=== PATIENT | female | born 1960 | race Caucasian/White ===

== ENCOUNTER 2022-03-28 11:46 | Inpatient (IN) ==
[2022-03-28] MEDS ORDERED: SODIUM CHLORIDE 0.9% 500 ML IV STA (12:56)
[2022-03-28] MEDS ORDERED: THIAMINE HCL 200 MG in SODIUM CHLORIDE 0.9% 50 ML IV STA (12:56)
[2022-03-28] MEDS ORDERED: MoRPHine SULFATE 4 MG/ML 1 ML CARP\\VIAL IV PRN (12:56)
[2022-03-28] MEDS ORDERED: ONDANSETRON INJ 2 MG/ML 2 ML VIAL IV STA (12:56)
--- NOTE | 2022-03-28 13:05 | Emergency Department Note ---
Impression & Plan Abdominal ascites, Abdominal pain, Thrombocytopenia, Abnormal LFTs ED Provider Note NAME: SHIREEN PETIT AGE: 61 SEX: F : 1960 ARRIVES VIA: Walk-In INFORMANT: Patient, ED PROVIDER(S): Feliz Nassar DO CHIEF COMPLAINT: Abdominal pain HPI: The patient is a 61-year-old female who is a history of chronic alcohol use who presented to the emergency department for an evaluation of left side abdominal pain. The patient states that she has had abdominal pain for approximately 6 weeks. She was seen at [facility] and diagnosed with a urinary tract infection. She states that she did take the antibiotic and the urinary symptoms improved but the patient continues to have left lower quadrant abdominal pain. She is had no fever. She does complain of some back pain. She does have a history of daily alcohol use. As far she knows she has no history of cirrhosis or ascites. She states her abdomen has become very distended. She denies having any black or bloody bowels. She denies having any chest pain but has had some shortness of breath especially with exertion. She is had no recent trauma or fever. She does not have a family doctor which is why she goes to [facility]. ROS: See above HPI for pertinent positives & negatives. A total of 10 systems reviewed and were otherwise negative. PAST MEDICAL HISTORY: See Below PAST SURGICAL HISTORY: See Below FAMILY HISTORY: See Below SOCIAL HISTORY: See Below HOME MEDICATIONS: See Below ALLERGIES: See Below VITALS: See Below PHYSICAL EXAMINATION: GENERAL: Patient is awake alert in no acute distress patient is resting comfortably and showing no signs of anxiety EYES: The conjunctivae are clear. The pupils are round and reactive. EARS, NOSE, MOUTH AND THROAT: The nose is without any evidence of any deformity. Mucous membranes are moist. Tongue is midline. NECK: The neck is nontender and supple. RESPIRATORY: Diminished breath sounds are noted at both bases. There were rales at both bases. CARDIOVASCULAR: Regular rate and rhythm noted there no murmurs rubs or gallops normal S1 normal S2. GASTROINTESTINAL: The abdomen is distended. There is a fluid wave suggestive of ascites. There is left-sided tenderness to palpation but no guarding or rigidity. MUSCULOSKELETAL/EXTREMITIES: There is no evidence of gross deformity full range of motion is noted in the hips and shoulders. SKIN: Pedal edema was noted bilaterally. Skin was warm and dry. NEUROLOGIC: Patient is awake alert and oriented x3 strength is symmetric moy lar reflexes are 2+ bilaterally MEDICAL DECISION MAKING: The patient is a 61-year-old female who presented to the emergency department for an evaluation of abdominal pain. The patient was seen at [facility] twice for these symptoms. The patient on my exam had significant ascites. She does admit to significant alcohol use. The patient was reevaluated multiple times. I treated the patient with IV pain medication. Ultimately the patient was found to have significant cirrhosis and ascites on CT. She has no family doctor. I am unsure if the patient would follow-up as an outpatient and I am uncomfortable with outpatient follow-up with this patient at this time. For this reason I discussed her case with the on-call unassigned gastroenterology group. They have agreed to evaluate the patient but would recommend that she stay in the hospital for further inpatient work-up as well as possible paracentesis. For this reason I discussed her case with the on-call [facility] hospitalist. The patient was agreeable to the plan. Triage Nursing notes reviewed. Prior medical records reviewed Vital Signs: reviewed and remarkable for elevated blood pressure. Differential diagnosis: Etiologies such as appendicitis, diverticulitis, obstruction, inflammatory bowel disease, renal colic, PUD, biliary pathology, pancreatitis, mesenteric ischemia, aortic pathology, infections, genitourinary, UTI, perforated viscus, as well as others were entertained. ER treatment provided: See below Diagnostics interpreted by me: ECG: none Cardiac Monitoring: An order was placed for continuous cardiac monitoring. The monitor shows a rate of 102 bpm with sinus tachycardia. Laboratory studies: As stated above and show below. Imaging studies: See below Consultation(s): I discussed this case with Bryson who is on for gastroenterology. I discussed this case with Dr. Lua who is on-call for the [facility] group. Past Med/Surg History Social History Smoking Status: Current every day smoker Tobacco Type: Cigarettes Preferred Language: Danish Feels Safe at Home: Yes Allergies Allergies Allergy/AdvReac Type Severity Reaction Status Date / Time No Known Allergies Allergy Unknown Verified 03/28/22 17:09 Home Meds Home Medications Medication Instructions Recorded Confirmed No Known Home Medications 09/14/18 03/28/22 Results & Data (ED) Vital Signs Vital Signs - 24 hr 03/28/22 11:59 03/28/22 12:54 03/28/22 14:00 Temperature 36.6 C Temperature Source Temporal Artery Scan Pulse Rate 106 H Pulse Rate [Finger] 107 H 69 Pulse Rhythm [Finger] Regular Respiratory Rate 18 16 16 Respiratory Effort / Characteristics Non-Labored Spontaneous Respiratory Depth Normal Respiratory Pattern Regular Blood Pressure 151/71 H Blood Pressure [Left Arm] 147/71 H 145/76 H Blood Pressure Mean 97 Blood Pressure Mean [Left Arm] 96 99 Blood Pressure Position Sitting Pulse Oximetry 96 91 90 Oxygen Delivery Method Room Air Sepsis Recent Fever Within 48 Hours No Sepsis New/Unexplained Change in Mental Status N/A Sepsis Action Taken by Nursing No Action Required 03/28/22 15:18 03/28/22 17:00 Temperature Temperature Source Pulse Rate Pulse Rate [Finger] 102 H 97 H Pulse Rhythm [Finger] Respiratory Rate 16 16 Respiratory Effort / Characteristics Respiratory Depth Respiratory Pattern Blood Pressure Blood Pressure [Left Arm] 143/71 H 123/74 Blood Pressure Mean Blood Pressure Mean [Left Arm] 95 90 Blood Pressure Position Pulse Oximetry 96 97 Oxygen Delivery Method Sepsis Recent Fever Within 48 Hours Sepsis New/Unexplained Change in Mental Status Sepsis Action Taken by [facility] Medications Current Medication List: was personally reviewed by me Laboratory Data Attestation: I reviewed the patient's lab results. Result diagrams: 03/28/22 12:38 03/28/22 12:38 Lab Results 03/28/22 03/28/22 03/28/22 Range/Units 12:38 12:38 12:38 WBC 6.66 (4.8-10.8) K/ul RBC 3.36 L (3.93-5.22) M/uL Hgb 12.3 (12.0-16.0) g/dl Hct 34.0 L (34.1-44.9) % MCV 101.2 H (80.0-100.0) fL MCH 36.6 H (25.0-34.0) pg MCHC 36.2 H (32.0-36.0) g/dL RDW Std Deviation 48.0 H (36.4-46.3) fL RDW Coeff of Justina 12.9 (11.5-14.5) % Plt Count 88 L (130-400) K/uL MPV 11.2 (9.4-12.3) fL Immature Gran % (Auto) 0.3 % Neut % (Auto) 65.0 % Lymph % (Auto) 25.5 % [place] % (Auto) 7.8 % Eos % (Auto) 0.9 % Baso % (Auto) 0.5 % Neut # (Auto) 4.33 (1.4-6.5) K/uL Lymph # (Auto) 1.70 (1.2-3.4) K/uL [place] # (Auto) 0.52 (0.24-0.82) K/uL Eos # (Auto) 0.06 (0-0.50) K/uL Baso # (Auto) 0.03 (0-0.2) K/uL Immature Gran # (Auto) 0.02 (0.00-0.02) K/uL Platelet Estimate Decreased L (Normal) Polychromasia 1+ Target Cells 1+ Tear Drop Cells 1+ PT 15.7 H (9.0-12.0) Seconds INR 1.5 H (0.9-1.1) APTT 33.0 H (21.0-31.0) Seconds PTT Ratio 1.2 Sodium 133 L (136-145) mmol/L Potassium 3.5 (3.5-5.1) mmol/L Chloride 100 (98-107) mmol/L Carbon Dioxide 27 (21-32) mmol/L Anion Gap 6 (3-11) BUN 4 L (6-23) mg/dl Creatinine 0.52 L (0.6-1.2) mg/dl Est Cr Clr Drug Dosing 98.8 ml/min Est GFR ( Amer) 119.5 ml/min Est GFR (Non-Af Amer) 103.1 ml/min BUN/Creatinine Ratio 7.7 L (10-20) Glucose 111 H (70-99(Fasting)) mg/dl Calcium 9.0 (8.5-10.1) mg/dl Total Bilirubin 4.1 H (0.2-1.0) mg/dl Direct Bilirubin (0-0.2) mg/dl AST 101 H (13-39) U/L ALT 39 (7-52) U/L Alkaline Phosphatase 101 (34-104) U/L Troponin I High Sens (0-14) pg/ml Total Protein 7.3 (6.0-8.3) gm/dl Albumin 2.9 L (3.4-5.0) gm/dl Globulin 4.4 H (2.5-4.0) gm/dl Albumin/Globulin Ratio 0.7 L (0.9-2) Lipase 43 (11-82) U/L Urine Color Urine Appearance (Clear) Urine pH (4.5-7.5) Ur Specific [place] (1.000-1.030) Urine Protein (Negative) Urine Glucose (UA) (Negative) Urine Ketones (Negative) Urine Blood (Negative) Urine Nitrite (Negative) Urine Bilirubin (Negative) Urine Urobilinogen (Negative) Ur Leukocyte Esterase (Negative) Urine RBC (0-4) /hpf Urine WBC (0-5) /hpf Ur Epithelial Cells (0-5) /lpf Urine Bacteria (Negative) Urine Mucus (None Prsent) SARS-CoV-2, RNA, NAAT (NEGATIVE) 03/28/22 03/28/22 03/28/22 Range/Units 12:38 12:45 13:20 WBC (4.8-10.8) K/ul RBC (3.93-5.22) M/uL Hgb (12.0-16.0) g/dl Hct (34.1-44.9) % MCV (80.0-100.0) fL MCH (25.0-34.0) pg MCHC (32.0-36.0) g/dL RDW Std Deviation (36.4-46.3) fL RDW Coeff of Justina (11.5-14.5) % Plt Count (130-400) K/uL MPV (9.4-12.3) fL Immature Gran % (Auto) % Neut % (Auto) % Lymph % (Auto) % [place] % (Auto) % Eos % (Auto) % Baso % (Auto) % Neut # (Auto) (1.4-6.5) K/uL Lymph # (Auto) (1.2-3.4) K/uL [place] # (Auto) (0.24-0.82) K/uL Eos # (Auto) (0-0.50) K/uL Baso # (Auto) (0-0.2) K/uL Immature Gran # (Auto) (0.00-0.02) K/uL Platelet Estimate (Normal) Polychromasia Target Cells Tear Drop Cells PT (9.0-12.0) Seconds INR (0.9-1.1) APTT (21.0-31.0) Seconds PTT Ratio Sodium (136-145) mmol/L Potassium (3.5-5.1) mmol/L Chloride (98-107) mmol/L Carbon Dioxide (21-32) mmol/L Anion Gap (3-11) BUN (6-23) mg/dl Creatinine (0.6-1.2) mg/dl Est Cr Clr Drug Dosing ml/min Est GFR ( Amer) ml/min Est GFR (Non-Af Amer) ml/min BUN/Creatinine Ratio (10-20) Glucose (70-99(Fasting)) mg/dl Calcium (8.5-10.1) mg/dl Total Bilirubin (0.2-1.0) mg/dl Direct Bilirubin 1.7 H (0-0.2) mg/dl AST (13-39) U/L ALT (7-52) U/L Alkaline Phosphatase (34-104) U/L Troponin I High Sens 5.9 (0-14) pg/ml Total Protein (6.0-8.3) gm/dl Albumin (3.4-5.0) gm/dl Globulin (2.5-4.0) gm/dl Albumin/Globulin Ratio (0.9-2) Lipase (11-82) U/L Urine Color [place] Urine Appearance Slightly Cloudy (Clear) Urine pH (4.5-7.5) Ur Specific Sum[place] 1.020 (1.000-1.030) Urine Protein (Negative) Urine Glucose (UA) (Negative) Urine Ketones (Negative) Urine Blood (Negative) Urine Nitrite (Negative) Urine Bilirubin (Negative) Urine Urobilinogen (Negative) Ur Leukocyte Esterase (Negative) Urine RBC 0-4 (0-4) /hpf Urine WBC 5-10 H (0-5) /hpf Ur Epithelial Cells >30 H (0-5) /lpf Urine Bacteria 1+ H (Negative) Urine Mucus Present A (None Prsent) SARS-CoV-2, RNA, NAAT NEGATIVE (NEGATIVE) Administered Medications Morphine Sulfate (Morphine Sulfate 4 Mg/Ml 1 Ml Carp\Vial) 4 mg IV Q15M PRN PRN Reason: Pain Stop: 04/11/22 12:55 Last Admin: 03/28/22 13:13 Dose: 4 mg Documented By: OUMOU Discontinued Medications Sodium Chloride (Nss) 500 mls @ 999 mls/hr IV .Q31M STA Stop: 03/28/22 13:26 Last Infusion: 03/28/22 15:17 Dose: 0 mls/hr Documented By: Admin: 03/28/22 13:14 Dose: 999 mls/hr Documented By: OUMOU Thiamine HCl 200 mg/ Sodium (Chloride) 52 mls @ 208 mls/hr IV NOW STA Stop: 03/28/22 12:57 Last Admin: 03/28/22 15:16 Dose: 208 mls/hr Documented By: OUMOU Ioversol (Optiray 350 100ml) 87 ml IV ONCE ONE Stop: 03/28/22 14:11 Last Admin: 03/28/22 14:06 Dose: 87 ml Documented By: RUTH Ondansetron HCl (Ondansetron Inj 2 Mg/Ml 2 Ml Vial) 4 mg IV NOW STA Stop: 03/28/22 12:57 Last Admin: 03/28/22 13:14 Dose: 4 mg Documented By: OUMOU Imaging Data Radiologist's Impression: Abdomen/Pelvis CT 03/28/22 12:56 CT abd pelvis IV con only CLINICAL HISTORY: abd pain TECHNIQUE: Helical axial images of the abdomen and pelvis were obtained and displayed. Automated dose lowering techniques and/or adjustment according to patient size were utilized for this exam. This exam was performed with intravenous contrast. CT DOSE: 414.45 mGy.cm COMPARISON: None available at the time of this dictation. FINDINGS: Lower chest: An ill-defined hypodensity in the right lower lung is noted measuring 14 mm. There are small bilateral pleural effusions. Liver: Nodular contour of the liver is seen compatible with cirrhosis. Gallbladder and biliary tree: The gallbladder and gallbladder wall is prominent without definite evidence of wall thickening. Common bile duct is enlarged measuring 9 mm. Pancreas: Unremarkable, no focal lesions. Spleen: Unremarkable. Adrenals: Unremarkable. Kidneys and ureters: Unremarkable. Bladder: Unremarkable. Reproductive organs: Unremarkable. Bowel: Diverticulosis is seen without evidence of diverticulitis. The appendix is not definitely seen however no secondary signs of appendicitis are noted. A hiatal hernia is seen. Lymph nodes Retroperitoneal: Unremarkable. Pelvic: Unremarkable. Mesenteric: Unremarkable. Peritoneum: Moderate to large ascites is noted. Vessels: Atherosclerotic calcifications are seen. Varices are noted about the esophagus. Recanalization of the umbilical arteries noted. The portal vein remains patent. Abdominal wall: A fat-containing fluid-filled umbilical hernia is noted. Bones: Degenerative changes in the visualized spine. IMPRESSION: 1. Cirrhosis and moderate to large ascites is seen in this patient with abdominal distention no evidence of bowel obstruction is seen. 2. Distention of the gallbladder and mild prominence of the gallbladder wall without lorri thickening may be secondary to ascites. If there is concern for acute cholecystitis, right upper quadrant ultrasound and/or nuclear medicine HIDA scan can be performed. 3. Trace bilateral pleural effusions. 4. Partial visualization of fat density lesion in the right lower lung which may represent a hamartoma. Correlation with prior imaging is recommended, if available. ACT 112: Negative or not required by law. Electronically signed by: Calvin Lomeli M.D. 03/28/2022 2:26 PM Chest X-Ray 03/28/22 12:56 XR chest 1V portable CLINICAL HISTORY: pain TECHNIQUE: Single frontal radiograph of the chest was obtained. Comparison: None available at the time of this dictation. FINDINGS: No lines and tubes are seen. The cardiomediastinal silhouette is normal. The lungs are clear. There is a small right pleural effusion. IMPRESSION: Small right pleural effusion. ACT 112: Negative or not required by law. Electronically signed by: Calvin Lomeli M.D. 03/28/2022 2:11 PM Discharge Plan Visit Data Chief Complaint: Abdominal Pain Stated Complaint: SOMACH PAIN, SWELLING ED Provider: Feliz Nassar Discharge Problem: Abdominal ascites, Abdominal pain, Thrombocytopenia, Abnormal LFTs Patient Disposition: Being Evaluated by Hospitalist Discharge Instructions Interventions: ED Discharge Assessment Last Done: 03/28/22 17:52 Forms Stand Alone Forms: [email or web address] Prescriptions Prescriptions: No Action No Known Home Medications Referrals Referrals: PCP,NO [Primary Care Provider] - : Abdominal ascites Qualifiers: Ascites type: due to alcoholic cirrhosis Qualified Code(s): K70.31 - Alcoholic cirrhosis of liver with ascites Abdominal pain Qualifiers: Abdominal location: left lower quadrant Qualified Code(s): R10.32 - Left lower quadrant pain
[2022-03-28 13:17] LABS: Albumin Globulin Ratio 0.7 (0.9-2); Albumin Level 2.9 gm/dl (3.4-5.0); BUN Creatinine Ratio 7.7 (10-20); Bilirubin,Total 4.1 mg/dl (0.2-1.0); Creatinine Clr Calc Pharmacy 98.8 ml/min; Est GFR (African American) 119.5 ml/min; Est GFR (Non-African American) 103.1 ml/min; Globulin 4.4 gm/dl (2.5-4.0); Potassium 3.5 mmol/L (3.5-5.1); Total Protein 7.3 gm/dl (6.0-8.3)
[2022-03-28 13:21] LABS: Appearance Urine Slightly Cloudy (Clear); Color Urine Orange
[2022-03-28 13:22] LABS: INR 1.5 (0.9-1.1); Partial Thromboplastin Ratio 1.2; Prothrombin Time 15.7 Seconds (9.0-12.0)
[2022-03-28 13:23] LABS: Epithelial Cell Urine >30 /lpf (0-5)
[2022-03-28 13:24] LABS: Bacteria Urine 1+ (Negative); RBC Urine 0-4 /hpf (0-4)
[2022-03-28 13:25] LABS: Mucus Urine Present (None Prsent)
[2022-03-28 13:47] LABS: Troponin I High Sensitivity 5.9 pg/ml (0-14)
[2022-03-28 13:52] LABS: Bilirubin Direct 1.7 mg/dl (0-0.2)
[2022-03-28 13:59] LABS: Basophils # (auto) 0.03 K/uL (0-0.2); Basophils % (auto) 0.5 %; Eosinophils # (auto) 0.06 K/uL (0-0.50); Eosinophils % (auto) 0.9 %; Hemoglobin 12.3 g/dl (12.0-16.0); Immature Granulocytes # (auto) 0.02 K/uL (0.00-0.02); Immature Granulocytes % (auto) 0.3 %; Lymphocytes % (auto) 25.5 %; Mean Corpuscular Hemoglobin 36.6 pg (25.0-34.0); Mean Corpuscular Hgb Conc 36.2 g/dL (32.0-36.0); Mean Corpuscular Volume 101.2 fL (80.0-100.0); Mean Platelet Volume 11.2 fL (9.4-12.3); Monocytes # (auto) 0.52 K/uL (0.24-0.82); Monocytes % (auto) 7.8 %; Neutrophils # (auto) 4.33 K/uL (1.4-6.5); Platelet Count 88 K/uL (130-400); Platelet Estimate Decreased (Normal); Polychromasia 1+; RDW Coefficient of Variation 12.9 % (11.5-14.5); Red Blood Count 3.36 M/uL (3.93-5.22); Target Cells 1+; Tear Drop Cells 1+; White Blood Count 6.66 K/ul (4.8-10.8)
[2022-03-28] MEDS ORDERED: OPTIRAY 350 100ml IV ONE (14:10)
--- NOTE | 2022-03-28 14:13 | XRay Report ---
XR chest 1V portable CLINICAL HISTORY: pain TECHNIQUE: Single frontal radiograph of the chest was obtained. Comparison: None available at the time of this dictation. FINDINGS: No lines and tubes are seen. The cardiomediastinal silhouette is normal. The lungs are clear. There i s a small right pleural effusion. IMPRESSION: Small right pleural effusion. ACT 112: Negative or not required by law. Electronically signed by: Calvin Lomeli M.D. 03/28/2022 2:11 PM
--- NOTE | 2022-03-28 14:28 | CT Scan Report ---
CT abd pelvis IV con only CLINICAL HISTORY: abd pain TECHNIQUE: Helical axial images of the abdomen and pelvis were obtained and displayed. Automated dose lowering techniques and/or adjustment according to patient size were utilized for this exam. This e xam was performed with intravenous contrast. CT DOSE: 414.45 mGy.cm COMPARISON: None available at the time of this dictation. FINDINGS: Lower chest: An ill-defined hypodensity in the right lower lung is noted measuring 14 mm. There are small bilateral pleural effusions. Liver: Nodular contour of the liver is seen compatible with cirrhosis. Gallbladder and biliary tree: The gallbladder and gallbladder wall is prominent without definite evid ence of wall thickening. Common bile duct is enlarged measuring 9 mm. Pancreas: Unremarkable, no focal lesions. Spleen: Unremarkable. Adrenals: Unremarkable. Kidneys and ureters: Unremarkable. Bladder: Unremarkable. Reproductive organs: Unremarkable. Bowel: Diverticulosis is seen without evidence of diverticulitis. The appendix is not definitely seen however no secondary signs of appendicitis are noted. A hiatal hernia is seen. Lymph nodes Retroperitoneal: Unremarkable. Pelvic: Unremarkable. Mesenteric: Unremarkable. Peritoneum: Moderate to large ascites is noted. Vessels: Atherosclerotic calcifications are seen. Varices are noted about the esophagus. Recanalizati on of the umbilical arteries noted. The portal vein remains patent. Abdominal wall: A fat-containing fluid-filled umbilical hernia is noted. Bones: Degenerative changes in the visualized spine. IMPRESSION: 1. Cirrhosis and moderate to large ascites is seen in this patient with abdominal distention no evid ence of bowel obstruction is seen. 2. Distention of the gallbladder and mild prominence of the gallbladder wall without lorri thickenin g may be secondary to ascites. If there is concern for acute cholecystitis, right upper quadrant ultr asound and/or nuclear medicine HIDA scan can be performed. 3. Trace bilateral pleural effusions. 4. Partial visualization of fat density lesion in the right lower lung which may represent a hamarto ma. Correlation with prior imaging is recommended, if available. ACT 112: Negative or not required by law. Electronically signed by: Calvin Lomeli M.D. 03/28/2022 2:26 PM
[2022-03-28] MEDS ORDERED: LORazepam 1 MG TAB PO PRN (16:50)
--- NOTE | 2022-03-28 17:23 | History & Physical Report ---
Date of Service March 28, 2022 Assessment & Plan (1) Cirrhosis, alcoholic: Plan: Patient admited with left sided abdominal pain. Given that patient has signs of cirrhosis, will consult GI. repeat blod work in AM. obtain paracenthesis, rule out spontaneous bacterial peritonitis Patient's Maddrey score is 25, and does not require prednisolone. Patient will be placed spirinolactone and lasix. Patient will need to be established with PCP (2) Abdominal ascites: Plan: fFrtom cirrhosis, getting paracenthesis in AM. Will likely require sprinolactone lasix at a ratio of 100/40 mg. will defer to after procedure (3) Abdominal pain: Plan: from problem 1, concern over SBP (4) Thrombocytopenia: Plan: from problem 1 (5) Abnormal LFTs: Plan: as above 1 (6) Nodule of right lung: Plan: right lower lung is noted measuring 14 mm, may need fluid drained, or biopsy lung nodule consulted as patient does not have PCP (7) Nicotine abuse: Plan: smokes tiny cigarettes, asks for minimal amount of nicotine DVT: defer as INR already 1.5 History of Present Illness Chief Complaint: abdominal pain Primary Care Provider: NO PCP 61 yo female who is a smoker, presents to the ER with a 6 week history of abdominal pain. This was accompanied by abdominal distention, fullness. Patient reports she has not seen a doctor since her last child was born about 26 years ago. Patient states she takes about 1.5 gr of acetaminophen 10 days a month. She reports she drink 4 glasses of wine 2 days a week. Patient reports no IV drug use. Patient reports no symptoms for alcohol withdrawal, like tremors, anxiety on days she does not drink, Patient lacks Past medical history, as she has not followed with a health care provider for close to 3 decades.. Allergies Allergy/AdvReac Type Severity Reaction Status Date / Time No Known Allergies Allergy Unknown Verified 03/28/22 17:09 Home Medications Medication Instructions Recorded Confirmed Type No Known Home Medications 09/14/18 03/28/22 History Past Med/Surg History Social History Smoking Status: Current every day smoker Tobacco Type: Cigarettes Second Hand Exposure: Yes; Do You Dip or Chew Tobacco: No; Tobacco Cessation Education Requested by Patient: No Hx Substance Use: No Preferred Language: Micronesian Communication Ability: Effective [employer] Buffer Required: No Beliefs That Will Affect Care: None Current Living Situation: Family Other Information That Helps Us Care for You: No Feels Safe at Home: Yes Safety Concerns: Feels Safe At This Time Assistive Devices: None Review of Systems Constitutional: + weakness; no fever and no body aches Eyes: no blind spots and no discharge Ear, Nose, Mouth, Throat: no ear pain and no tinnitus Respiratory: no cough Cardiovascular: no chest pain Gastrointestinal: + abdominal pain, + bloating and + early satiety Genitourinary: no dysuria Musculoskeletal: no back pain Integumentary: no acne Neurologic: no gait abnormality Psychiatric: no behavioral changes Endocrine: + fatigue Hematologic / Lymphatic: + easy bleeding Allergy / Immunological: no GI upset with certain foods Physical Exam Constitutional: well developed, + ill appearing (older than stated age), + frail appearing and cooperative; no acute distress Eyes: + scleral abnormality (icteric) and PERRL ENMT: external ear and nose normal, oropharynx normal Neck: trachea midline, no thyromegaly Respiratory: normal respiratory effort, lungs clear to auscultation Cardiovascular: Rate/Rhythm: regular rate and + tachycardic Gastrointestinal (Abdomen): ascitic wave noted, abd. distention, caput medusa noted soft, mildy tender to deep palpation. Musculoskeletal: no cyanosis or clubbing, extremities motor strength 5/5 Skin: palmar erythema bilaterally, Neurologic: PERRL, EOMI, accommodation nl, no face palsy, no dysarthria Psychiatric: A+Ox3, euthymic affect Lymphatic: no cervical or axillary lymphadenopathy Results & Data Results & Data ([facility]) Vital Signs (Past 12 Hours) Vital Signs Temp Pulse Pulse Resp BP BP Pulse Ox 03/28/22 15:18 102 H 16 143/71 H 96 03/28/22 14:00 69 16 145/76 H 90 03/28/22 12:54 107 H 16 147/71 H 91 03/28/22 11:59 36.6 C 106 H 18 151/71 H 96 O2 Del Method 03/28/22 15:18 03/28/22 14:00 03/28/22 12:54 03/28/22 11:59 Room Air PG Care Time/CCT Total # of Minutes Spent Total Time Spent with Patient: Total time spent is greater than 50% in coordination of care (as documented) at patient's floor/unit and/or counseling patient: Coding Level of Care Code 93600 Initial Inpt Care Lvl 3 Diagnoses Cirrhosis, alcoholic K70.30 Abdominal ascites K70.31 Ascites type: due to alcoholic cirrhosis Abdominal pain R10.32 Abdominal location: left lower quadrant Thrombocytopenia D69.6 Abnormal LFTs R79.89 Nodule of right lung R91.1 Nicotine abuse Z72.0 (1) Abdominal ascites Ascites type: due to alcoholic cirrhosis Qualified Code(s): K70.31 - Alcoholic cirrhosis of liver with ascites (2) Abdominal pain Abdominal location: left lower quadrant Qualified Code(s): R10.32 - Left lower quadrant pain
[2022-03-28] MEDS: FOLIC ACID 1 MG TAB PO SCH (21:02)
[2022-03-28] MEDS: THIAMINE HCL 100 MG TAB PO SCH (21:03)
[2022-03-28] MEDS: NICOTINE 7 MG/24 HR TDSY TD SCH (21:03)
[2022-03-29 07:25] LABS: Albumin Globulin Ratio 0.7 (0.9-2); Albumin Level 2.3 gm/dl (3.4-5.0); BUN Creatinine Ratio 9.4 (10-20); Bilirubin,Total 3.3 mg/dl (0.2-1.0); Calcium 8.2 mg/dl (8.5-10.1); Creatinine Clr Calc Pharmacy 96.3 ml/min; Est GFR (African American) 118.8 ml/min; Est GFR (Non-African American) 102.5 ml/min; Globulin 3.2 gm/dl (2.5-4.0); Potassium 3.5 mmol/L (3.5-5.1); Total Protein 5.5 gm/dl (6.0-8.3)
--- NOTE | 2022-03-29 07:50 | Hospitalist Progress Note ---
Date of Service March 29, 2022 Assessment & Plan Admission and Anticipated Discharge Date Admission Date: March 28, 2022 Results & Data Results & Data ([facility]) Vital Signs (Past 12 Hours) Vital Signs Temp Pulse Resp BP Pulse Ox O2 Del Method 03/29/22 03:49 37.1 C 92 H 18 110/58 L 92 Room Air 03/28/22 23:14 37.1 C 94 H 16 114/57 L 96 Room Air 03/28/22 20:55 36.9 C 99 H 18 133/68 96 Room Air
[2022-03-29] MEDS ORDERED: SPIRONOLACTONE 100 MG TAB PO SCH (09:00)
[2022-03-29] MEDS ORDERED: FUROSEMIDE 40 MG/4 ML VIAL IV SCH (09:00)
[2022-03-29] MEDS: FOLIC ACID 1 MG TAB PO SCH (09:17)
[2022-03-29] MEDS: THIAMINE HCL 100 MG TAB PO SCH (09:17)
[2022-03-29] MEDS: NICOTINE 7 MG/24 HR TDSY TD SCH (09:20)
--- NOTE | 2022-03-29 09:33 | Gastrointestinal Consultation ---
Date of Consultation March 29, 2022 Assessment & Plan (1) Cirrhosis, alcoholic: (2) Abdominal ascites: Plan -Proceed with diagnostic/therapeutic paracentesis with fluid studies as ordered by hospitalist. Pending volume of tap, may need Albumin. -Continue Aldactone 100 mg and Lasix 40 mg daily (adding K supplement) as ordered by hospitalist team. -Suspect etiology of cirrhosis is alcohol related, however viral hepatitis studies are pending and will plan to obtain autoimmune studies as outpatient. If no immunity to hep A/B, would plan to vaccinate as an outpatient. -Current MELD score is 17; Would advise continuing to monitor MELD labs. -HCC surveillance with AFP & routine liver imaging as outpatient. -EGD for variceal surveillance and colonoscopy as outpatient. -Limit sodium intake to less than 2,000 mg daily. -Avoid NSAIDs. Ok to use up to 2 gm Tylenol daily. -Avoid alcohol as it is a known liver toxin; would also plan to continue vitamin supplementation given alcohol use. -No current signs of hepatic encephalopathy; would avoid constipation. -The remainder of this cirrhosis work-up will be performed as an outpatient. Supervising Physician Co-Signing Physician Notes I personally evaluated the patient and agree with the findings as documented by Debbie Reeves, LARRY Exam: Constitutional: WD/WN, vitals as above General: EOM intact bilaterally Neck: normal visual inspection Respiratory: normal respiratory effort, lungs clear to auscultation Cardiovascular: RRR, no murmur, no edema Gastrointestinal: abdomennormal to inspection, nondistended, soft, nontender, no hepatosplenomegaly Musculoskeletal: no cyanosis, head normal to inspection Skin: no rashes, warm and dry Neurologic: moves all extremities, no asterixis Psychiatric: A and O x3, euthymic affect History of Present Illness Reason for Consultation: Cirrhosis Attending Physician: Santiago Huff DO History of Present Illness Patient is a 61 yo female without any known medical history as she has not sought medical care in 26 years. She presented to the ED at [facility] with 6 weeks of abdominal discomfort and pressure. She notes distention of her abdomen and a sensation of feeling full. In the ED, she was noted to have a CT with findings as follows: 1. Cirrhosis and moderate to large ascites is seen in this patient with abdominal distention no evidence of bowel obstruction is seen. 2. Distention of the gallbladder and mild prominence of the gallbladder wall without lorri thickening may be secondary to ascites. If there is concern for acute cholecystitis, right upper quadrant ultrasound and/or nuclear medicine HIDA scan can be performed. 3. Trace bilateral pleural effusions. 4. Partial visualization of fat density lesion in the right lower lung which may represent a hamartoma. Correlation with prior imaging is recommended, if available She acknowledges alcohol use. No history of IVDA. She notes no pertinent family history. Patient endorses some Tylenol use, however it is not over the advised amount. T bili is 3.3, D Bili 1.7. AST 66, ALT 27. Alk phos 78. The patient's MELD score is calculated to 17. She has evidence of thrombocytopenia on labs. Arianne zazueta was admitted to the hospital and the hospitalist initiated Aldactone 100 mg daily & Lasix 40 mg daily. A diagnostic/therapeutic paracentesis appears to have been ordered. She describes her abdominal pain as generalized. Allergies Allergy/AdvReac Type Severity Reaction Status Date / Time No Known Allergies Allergy Unknown Verified 03/28/22 17:09 Home Medications Medication Instructions Recorded Confirmed Type No Known Home Medications 09/14/18 03/28/22 History Patient History Social History Smoking Status: Current every day smoker Tobacco Type: Cigarettes Second Hand Exposure: Yes; Do You Dip or Chew Tobacco: No; Tobacco Cessation Education Requested by Patient: No Hx Substance Use: No Preferred Language: French Communication Ability: Effective Property Adjuster Required: No Beliefs That Will Affect Care: None marital status: Current Living Situation: Family How many Children do You have: 1 Other Information That Helps Us Care for You: No Feels Safe at Home: Yes Safety Concerns: Feels Safe At This Time Assistive Devices: None Review of Systems Constitutional: no fever and no chills Respiratory: no cough and no dyspnea Cardiovascular: no chest pain Gastrointestinal: + abdominal pain Psychiatric: no problem reported Physical Exam Constitutional: no acute distress Respiratory: normal respiratory effort Cardiovascular: Rate/Rhythm: regular rate Gastrointestinal (Abdomen): Inspection/Auscultation: + abdomen distended Percussion/Palpation: + ascites Musculoskeletal: Head/Neck/Chest: normocephalic Psychiatric: Orientation: alert and oriented x 3 Results & Data ([facility]) Vital Signs (Past 12 Hours) Vital Signs Temp Pulse Resp BP Pulse Ox O2 Del Method 03/29/22 08:00 Room Air 03/29/22 06:00 36.7 C 89 18 115/66 97 03/29/22 03:49 37.1 C 92 H 18 110/58 L 92 Room Air 03/28/22 23:14 37.1 C 94 H 16 114/57 L 96 Room Air PG Care Time/CCT Total # of Minutes Spent Total Time Spent with Patient: Total time spent is greater than 50% in coordination of care (as documented) at patient's floor/unit and/or counseling patient: Coding Level of Care Code 84646 Inpt Consult Level 4 Diagnoses Cirrhosis, alcoholic K70.30 Abdominal ascites K70.31 Ascites type: due to alcoholic cirrhosis (1) Abdominal ascites Ascites type: due to alcoholic cirrhosis Qualified Code(s): K70.31 - Alcoholic cirrhosis of liver with ascites
--- NOTE | 2022-03-29 12:44 | Ultrasound Report ---
PARACENTESIS UNDER ULTRASOUND GUIDANCE CLINICAL HISTORY: Abdominal ascites. COMPARISON STUDY: Abdominal CT dated 03/28/2022 PROCEDURE: The risks, benefits, and alternatives to the procedure were discussed with the patient who voiced understanding. Written informed consent was obtained. Following real-time ultrasound localiza tion of a suitable pocket of fluid in the right lower quadrant, the abdomen was prepped and draped in the usual sterile fashion. The skin and soft tissues were anesthetized with 1% lidocaine. The sheath ed paracentesis needle was inserted and approximately 3 liters of straw-colored ascitic fluid was rem eneida by vacuum suction. A sample sent for laboratory analysis. The procedure was well tolerated and w ithout immediate complication. The patient left the department in satisfactory condition. IMPRESSION: Successful ultrasound-guided paracentesis with removal of approximately 3 liters of ascit ic fluid. ACT 112: Negative or not required by law. Electronically signed by: Guillermo Vazquez M.D. 03/29/2022 12:43 PM
--- NOTE | 2022-03-29 13:40 | CT Scan Report ---
CT chest diagnostic wo con CLINICAL HISTORY: Lung Nodule TECHNIQUE: Multidetector row helical CT of the chest was performed. Coronal and sagittal reformations were obtained. Automated dose lowering techniques and/or adjustment according to patient size were u tilized for this exam. CT DOSE: 212.25 mGy.cm Comparison: Comparison is made to chest radiograph 03/28/[address] abdomen pelvis 03/28/2022 FINDINGS: Lungs and pleura: Diffuse centrilobular emphysema is seen most prominent in the upper lobes. There ar e trace bilateral pleural effusions with associated atelectasis. No suspicious pulmonary nodules are seen. In particular, the previously noted density seen in the CT abdomen pelvis likely correspond to the inferior wall of the right inferior pulmonary vein. Heart and pericardium: Heart size is normal. No pericardial effusion. Vessels: Mild atherosclerotic changes in the aorta and coronary arteries. Mediastinum and catarino: Unremarkable. Chest wall and lower neck: Unremarkable. Abdomen: Cirrhotic contour to the liver is seen. There is mild ascites. Bones: Degenerative changes in the thoracic spine. IMPRESSION: 1. No suspicious pulmonary nodule. Previously noted density in the right lower lung likely correspon ding to the inferior wall the right inferior pulmonary vein. 2. Emphysema is noted. 3. Trace bilateral pleural effusions with associated atelectasis. 4. Partial visualization of cirrhosis and mild ascites. ACT 112: Negative or not required by law. Electronically signed by: Calvin Lomeli M.D. 03/29/2022 1:39 PM
[2022-03-29 14:26] LABS: Appearance Peritoneal Fluid Clear; Basophils, Fluid 1 %; Color Peritoneal Fluid Yellow; Lymphocytes, Fluid 18 %; Mono,Macrophage,Mesothelial 64 %; Neutrophils, Fluid 17 %; RBC Peritoneal Fluid (A) < 2000 /uL; WBC Peritoneal Fluid (A) 300 /ul (0-300)
[2022-03-29 14:31] LABS: Albumin Peritoneal Fluid < 1.5 gm/dl; Amylase Peritoneal Fluid 20 U/L; Glucose Peritoneal Fluid 126 mg/dl; LDH Peritoneal Fluid 53 U/L; Lipase Peritoneal Fluid 25 U/L; Total Protein Peritoneal Fluid < 3.0 gm/dl
--- NOTE | 2022-03-29 17:28 | Discharge Summary ---
Date of Service March 29, 2022 Admission HPI Per Admitting Provider 61 yo female who is a smoker, presents to the ER with a 6 week history of abdominal pain. This was accompanied by abdominal distention, fullness. Patient reports she has not seen a doctor since her last child was born about 26 years ago. Patient states she takes about 1.5 gr of acetaminophen 10 days a month. She reports she drink 4 glasses of wine 2 days a week. Patient reports no IV drug use. Patient reports no symptoms for alcohol withdrawal, like tremors, anxiety on days she does not drink, Patient lacks Past medical history, as she has not followed with a health care provider for close to 3 decades.. Admission Exam Per Admitting Provider Constitutional: well developed, + ill appearing (older than stated age), + frail appearing and cooperative; no acute distress Eyes: + scleral abnormality (icteric) and PERR L ENMT: external ear and nose normal, oropharynx normal Neck: trachea midline, no thyromegaly Respiratory: normal respiratory effort, lungs clear to auscultation Cardiovascular: Rate/Rhythm: regular rate and + tachycardic Gastrointestinal (Abdomen): ascitic wave noted, abd. distention, caput medusa noted soft, mildy tender to deep palpation. Musculoskeletal: no cyanosis or clubbing, extremities motor strength 5/5 Skin: palmar erythema bilaterally, Neurologic: PERRL, EOMI, accommodation nl, no face palsy, no dysarthria Psychiatric: A+Ox3, euthymic affect Lymphatic: no cervical or axillary lymphadenopathy Principal Diagnosis Alcoholic Cirrhosis Discharge Exam Constitutional WD/WN, vitals as above Eyes PERRL, conjunctivae normal, anicteric sclerae ENMT external ear and nose normal, oropharynx normal Neck trachea midline, no thyromegaly Respiratory normal respiratory effort, lungs clear to auscultation Cardiovascular Rate/Rhythm: regular rate and regular rhythm Gastrointestinal (Abdomen) Inspection/Auscultation: abdomen normal to inspection, + abdomen distended (minimally distended) and normal bowel sounds Percussion/Palpation: abdomen soft; abdomen nontender Skin no rashes, warm and dry Discharge Data Allergies Allergy/AdvReac Type Severity Reaction Status Date / Time No Known Allergies Allergy Unknown Verified 03/28/22 17:09 Consultations 03/28/22 16:31 ED Decision to Admit Stat 03/29/22 06:54 Consult Gastroenterology Routine Ordered Studies 03/28/22 12:56 CT abd pelvis IV con only Stat 03/29/22 11:00 US paracentesis abd w/image Routine 03/29/22 11:47 CT chest diagnostic wo con Routine Hospital Course (1) Cirrhosis, alcoholic: -started lasix PO 40mg daily -started Spironolactone 100mg daily -patient to follow with GI -Patient to follow new PCP (1) Cirrhosis, alcoholic: Patient's Maddrey score is 25, and does not require prednisolone. CT A/P: Cirrhosis and moderate to large ascites is seen in this patient with abdominal distention no evidence of bowel obstruction is seen. Distention of the gallbladder and mild prominence of the gallbladder wall without lorri thickening may be secondary to ascites. If there is concern for acute cholecystitis, right upper quadrant ultrasound and/or nuclear medicine HIDA scan can be performed Trace bilateral pleural effusions. Consulted GI Paracentesis performed, transudative fluid cultures pending continue lasix and spironolactone hepatitis panels pending patient advised to limit sodium. Advised to avoid NSAIDS, tylenol, alcohol f/u in outpatient Patient's Maddrey score is 25, and does not require prednisolone. (2) Nicotine abuse: smokes tiny cigarettes, Consider cessation, nicotine patch (2) Nicotine abuse: (3) Abdominal ascites: (4) Abdominal pain: (5) Thrombocytopenia: Total Time Total Time Spent Total Time Spent (In Minutes): <30 Discharge Plan Discharge Items Patient Disposition: Home - Self-Care Reason For Visit: CIRRHOSIS/ ASCITIES Discharge Diagnosis: Cirrhosis Activity: Per Instructions section Non-emergency contact: Primary Care Provider Call non-emergency contact if: you have any medication questions, your symptoms worsen and your pain is unusual for you Follow-up/Referrals: Federico Alvares DO [Physician] - (WILL CALL YOU FRIDAY WITH APPT FOR GASTRO) Annia Mcgee DO [Resident] - 04/02/22 8:30 am (Please schedule f/u Debbie Gonzalez @ [address] [place] [address]) PCP,NO [Primary Care Provider] - Diet: Heart Healthy Addtl Attending Provider Instructions: You were admitted to the hospital for abdominal pain, caused by liver cirrhosis and swelling of your abdomen. Your liver damage is causing backflow of fluid, which accumulates in your abdomen and causing it to swell. You were treated by draining the fluid from your abdomen. You were also treated with medications (Lasix and Spironolactone) to help you pee out the extra fluid. Please continue these medications and follow up with your PCP within 1 week of discharge. In order to reduce the risk of further fluid overload and hospitalization, there are certain lifestyle changes we want you to incorporate into your day to day life. Stopping alcohol will prevent further damage to your liver. With time, yo ur liver may even recover and repair from its current damage. Decreasing your salt intake will also reduce the amount of fluid that accumulates in your body. This means limiting salt intake to a total of 2000mg daily. You can help track your salt intake by looking at food labels, and decreasing added salts to meals. Foods such as canned soup, processed meat (example: potts, jerky), takeout meals (fries, burgers, etc.), and snacks (potato chips, salted popcorn, etc) are high in salt and should largely be avoided. Additionally, medications such as tylenol and ibuprofen can cause further damage to your liver. If you need pain medication, you may use 1 tab of ibuprofen per day. You may also try other options such as ice, heat, massage, or medical options such as topical Voltaren gel (a pain relief gel) or a lidocaine patch (a numbing patch) A discharge summary will be sent to your primary care physician to ensure continuity of care. Please bring this discharge summary with you to your next office appointment so that your provider can review it at that time. Follow-up appointments: We will arrange a follow-up appointment with your PCP within the next week. It is very important that you follow up with them shortly after discharge from the hospital. We will arrange a follow-up appointment with your cloth printer. Keep all your follow-up appointments as already scheduled. If you cannot make an appointment, notify your provider. Medications: Your medication list has been reviewed and reconciled upon discharge to ensure accuracy and continuity of care. An updated list of all your medications is included with your hospital discharge paperwork. Please review this list closely, and make note of any changes. * We sent a new medication called Spironolactone to your pharmacy. Take Spironolactone 100mg one tablet daily * We sent a new medication called Lasix to your pharmacy. Take Lasix 40mg one tablet daily * We recommend you begin vitamin supplementation for vitamin B9, or Folate, as you were found to be low in the hospital Take your medications as instructed; do not skip a dose of your medicines. Make sure all of your doctors know every medicine you are taking (including [id number] medicines, vitamins, and supplements). Call your primary care provider before taking any new medicines (including kdlv-jed-dktvvgm medicines, vitamins, and supplements), because some of these may interact with your current medications, or may make your symptoms worse. Tell your primary care provider if you cannot afford your medications. CONTACT YOUR PRIMARY CARE PROVIDER if you experience any of the following: Increased abdominal swelling, abdominal pain, nausea Difficulty breathing Difficulty following your treatment plan, or difficulty taking medications CALL 911 OR GO TO THE EMERGENCY DEPARTMENT if you experience any of the following: Sudden, severe abdominal pain or nausea/vomiting Severe chest pain, or chest pain that radiates (moves) to your jaw or arm Sudden, severe shortness of breath or difficulty breathing Thank you for allowing us to participate in your care. Pending Studies at Discharge: No Stand-Alone Forms: My [facility], Smoking Cessation Medications and DC Order Prescriptions: New spironolactone 100 mg Tablet 100 mg PO QAM 30 Days Qty: 30 0RF furosemide 40 mg Tablet 40 mg PO QAM 30 Days Qty: 30 0RF folic acid 1 mg Tablet 1 mg PO QAM 30 Days Qty: 30 0RF No Action No Known Home Medications Discharge Orders: Discharge Order (Routine); Ordered 03/29/22 Ordered By: Annia Londono/Other Patient Handouts: Treating Cirrhosis, Cirrhosis of Liver Dc, ED Low-Salt Diet Admission Data Admit Date/Time: 03/28/22 16:39 Attending Provider: Santiago Huff Admit Provider: José Miguel Lua Primary Care Provider: PCP,NO Other Providers: José Miguel Lua ; Federico Alvares Other Interventions: Discharge Summary Assessment (RN) Last Done: 03/29/22 17:33 Supervising Physician Co-Signing Physician Notes I personally examined the patient and verified all morgan points of history and exam, discussed case, and agree with decision making with Dr Mcgee. Feeling better after paracentesis and would like to go home. Discussed new diagnosis of cirrhosis, discussed avoiding hepatotoxins in depth. Discussed diuretic use and risk/benefit as well as need for close follow-up and follow-up lab work, discussed sodium restriction and how that will aid in avoiding fluid retention. She expressed good understanding. present as well. Vitals noted, in general she is awake and alert pleasant no distress. HEENT normocephalic atraumatic mucous membranes moist. Breathing unlabored no accessory muscle use good effort. Skin shows no rashes no pallor or icterus. Neuro without focal deficits. New diagnosis cirrhosis with ascites s/p para, feeling better safe for home, av oid hepatotoxins, diurese//f/u BMP, low sodium, establish w PCP (will follow w dr mcgee)/f/u w GI Resident Activity Tracking Resident Involvement: Resident Care Provided Care Provided: Adult Hospital Medicine
--- NOTE | 2022-03-29 19:03 | Billing Data ---
Date of Service March 29, 2022 Coding Level of Care Code D/C DAY MANAGEMENT <30 MINS
[2022-03-30] MEDS ORDERED: FUROSEMIDE 40 MG TAB PO SCH (09:00)
[2022-03-30 14:36] LABS: HBSAG NON-REACTIVE (NON-REACTIVE); Hepatitis A Antibody IgM NON-REACTIVE (NON-REACTIVE); Hepatitis B Core Antibody IgM NON-REACTIVE (NON-REACTIVE)
[2022-03-31 20:46] LABS: EAG mmol/L 3.8 mmol/L
== END 2022-03-29 18:31 | disposition home or self-care (01) | DRG 434 ==
LOC: ED 11:46 → SUATTDRO 16:39 → 2E 16:39

== ENCOUNTER 2022-11-26 12:10 | Observation (INO) ==
[2022-11-26] MEDS ORDERED: MoRPHine SULFATE 2 MG/ML CARP IV STA ×2 (12:39→14:01)
[2022-11-26] MEDS ORDERED: ONDANSETRON INJ 2 MG/ML 2 ML VIAL IV STA (12:39)
--- NOTE | 2022-11-26 12:39 | Emergency Department Note ---
History of Present Illness General Chief complaint: Back Injury/Pain Stated complaint: BACK PAIN,CIRRHOSIS OF LIVER Time Seen by Provider: 11/26/22 12:28 History of Present Illness Maximum Pain Intensity: 10 This is a 62-year-old female that presents to the emergency department via private vehicle accompanied by with complaints "back pain, cirrhosis of liver". The patient notes that not this past Friday but the Friday before, approximately 9 to 10 days ago she was lifting some heavy boxes. Not long after she began with some right low back pain. It is worse with movement and mildly better with rest. She also is worried that she is having worsening liver issues noting she has some swelling to the lower extremities which is similar to what she experienced back in April when she was diagnosed with cirrhosis. The patient notes that in regard to low back pain it has worsened since onset and significantly worsened this past . Current pain 03/11. She denies any history of spine surgery. She has never had pain in her back like this before. Patient denies any lower extremity weakness, bowel or bladder incontinence, numbness or tingling in genital region. Patient denies any fevers, chills, nausea, vomiting, chest pain or shortness of breath. No history of blood clot. Patient notes that she has been very careful on her diet. She did note she took Tylenol around 8 PM last evening. She is concerned noting her history of cirrhosis. Home Medications Medication Instructions Recorded Confirmed Type Medical Marijuana Card 1 dose UD PRN Anxiety 08/22/22 11/26/22 History psyllium husk 3.4 gram/5.4 gram 1 tbsp PO BID 08/22/22 11/26/22 History oral powder (Metamucil) magnesium chloride 64 mg 64 mg PO DAILY #30 tabs 09/10/22 11/26/22 Rx (magnesium chloride) tablet,delayed release furosemide 40 mg tablet 20 mg PO QAM 30 days #15 tabs 10/10/22 11/26/22 Rx folic acid 1 mg tablet 1 mg PO QAM 30 days #30 tabs 10/16/22 11/26/22 Rx spironolactone 100 mg tablet 100 mg PO QAM 30 days #30 tabs 10/16/22 11/26/22 Rx acetaminophen 500 mg tablet 1,000 mg PO DIRECTED PRN Pain 11/26/22 11/26/22 History (Tylenol Extra Strength) fexofenadine 180 mg tablet 180 mg PO DAILY 11/26/22 11/26/22 History Allergies Allergy/AdvReac Type Severity Reaction Status Date / Time No Known Allergies Allergy Unknown Verified 11/26/22 14:54 Past Med/Surg History Medical History (Updated 11/26/22 @ 16:13 by Sterling Cunningham PA-C) Anxiety Cirrhosis of liver History of anesthesia reaction REMOTE HX HAD GAS ANESTHESIA WITH D&C/LUNG INFECTION WITHIN 24 HOURS AFTERWARDS ..TOLD TO AVOID GENERAL ANESTHESIA History of asthma CHILDHOOD History of COVID-19 HOME TEST + JUL 03 2022 - NO CURRENT S/ Low blood pressure CHRONIC ALL MY LIFE Vision decreased 11% OF VISION RIGHT EYE/HX ACCIDENT RELATED FAST MOTION MAKES ME SICK Surgical History History of D&C History of tooth extraction Family History Grandmother (Maternal) Breast cancer Mother Brain tumor due to accident Denies family history of Ovarian cancer Prostate cancer Diabetes Myocardial infarction Lung cancer Colorectal cancer Stroke Social History Smoking Status: Former smoker Tobacco Type: Cigarettes Age Started Using Tobacco: 13; packs per day: 1; Cigarettes Per Day: 3/4PPD ADVISED NPO; Second Hand Exposure: No; Do You Dip or Chew Tobacco: No; Hx Alcohol Use: Yes (HX >MODERATE/NONE SINCE DX OF CIRRHOSIS OF LIVER) Alcohol type: wine Hx Substance Use: No Preferred Language: Greek Communication Ability: Effective Visual Impairment: Limited Hearing Ability: Normal 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 Beliefs That Will Affect Care: None marital status: Current Living Situation: Spouse current occupational status: unemployed How many Children do You have: 1 Feels Safe at Home: Yes Childhood Exposure to Second-Hand Smoke: Yes Diet: low salt and regular caffeine: Yes Dental Care, Regularly: No Physical Activity Frequency: Does not Exercise Seatbelt Use: always Sunscreen Use: No Do you think of yourself as: straight/heterosexual Assistive Devices: Denture - Upper and Denture - Lower Review of Systems A total of 10 systems reviewed and were otherwise negative Physical Exam Vital Signs Vital Signs - 24 hr 11/26/22 12:13 11/26/22 13:20 11/26/22 13:05 Temperature 36.5 C Temperature Source Temporal Artery Scan Pulse Rate 84 86 86 Pulse Rate [Apical] Pulse Rate from SpO2 Sensor 87 Respiratory Rate 18 23 Respiratory Effort / Characteristics Non-Labored Respiratory Depth Normal Blood Pressure 95/52 L Blood Pressure [Left Arm] Blood Pressure Mean 66 Blood Pressure Mean [Left Arm] Pulse Oximetry 98 95 Oxygen Delivery Method Room Air Room Air Sepsis Recent Fever Within 48 Hours No Sepsis New/Unexplained Change in Mental Status No Sepsis Action Taken by Nursing No Action Required 11/26/22 13:30 11/26/22 13:49 11/26/22 13:49 Temperature Temperature Source Pulse Rate 81 87 Pulse Rate [Apical] Pulse Rate from SpO2 Sensor 81 87 Respiratory Rate 17 19 Respiratory Effort / Characteristics Respiratory Depth Blood Pressure 105/57 L Blood Pressure [Left Arm] Blood Pressure Mean 69 Blood Pressure Mean [Left Arm] Pulse Oximetry 98 98 Oxygen Delivery Method Room Air Room Air Sepsis Recent Fever Within 48 Hours Sepsis New/Unexplained Change in Mental Status Sepsis Action Taken by Nursing 11/26/22 14:00 11/26/22 14:30 11/26/22 14:31 Temperature Temperature Source Pulse Rate 84 85 82 Pulse Rate [Apical] Pulse Rate from SpO2 Sensor 87 85 85 Respiratory Rate 16 14 16 Respiratory Effort / Characteristics Respiratory Depth Blood Pressure Blood Pressure [Left Arm] Blood Pressure Mean Blood Pressure Mean [Left Arm] Pulse Oximetry 99 98 99 Oxygen Delivery Method Room Air Room Air Room Air Sepsis Recent Fever Within 48 Hours Sepsis New/Unexplained Change in Mental Status Sepsis Action Taken by Nursing 11/26/22 14:31 11/26/22 15:04 Temperature Temperature Source Pulse Rate Pulse Rate [Apical] 87 Pulse Rate from SpO2 Sensor Respiratory Rate 18 Respiratory Effort / Characteristics Non-Labored Respiratory Depth Normal Blood Pressure 106/57 L Blood Pressure [Left Arm] 109/58 L Blood Pressure Mean 73 Blood Pressure Mean [Left Arm] 75 Pulse Oximetry 99 Oxygen Delivery Method Room Air Sepsis Recent Fever Within 48 Hours Sepsis New/Unexplained Change in Mental Status Sepsis Action Taken by Nursing VITAL SIGNS - Vital signs and nursing notes were reviewed. Blood pressure borderline low, otherwise stable. GENERAL -62-year-old female appearing her stated age who is in no acute distress. Communicates well with provider and answers questions appropriately. SKIN - Without rashes. No meningeal or petechial rash. No herpetic lesions. HEAD - NC/AT. EYES - Sclera anicteric. EARS - No deformities of external structures noted on gross examination bilaterally. NOSE - Midline and without cyanosis. No epistaxis or purulent drainage noted. MOUTH/OROPHARYNX - Without perioral cyanosis. NECK - Neck with FROM. No nuchal rigidity. LUNGS - Chest wall symmetric without accessory muscle use, intercostals retractions, or central cyanosis. Normal vesicular breath sounds CTA B/L. No wheezes, rales, or rhonchi appreciated. CARDIAC - RRR with S1/S2. No murmur, rubs, or gallops appreciated. ABDOMEN - Abdominal contour normal without pulsations or visible masses. BS normoactive all four quadrants. No tenderness, palpable masses, hepatosplenomegaly, or ascites noted. MUSCULOSKELETALthere is no reproducible tenderness to palpation overlying the L-spine or back region. EXTREMITIES - No clubbing or peripheral cyanosis. +5/5 strength noted in UE/LE bilaterally. NEUROLOGIC - Cranial nerves II through XII grossly intact. PSYCH - A&Ox3 and cooperates fully with examiner. Pt is very pleasant and interacts well with examiner. Course Administered Medications Discontinued Medications Thiamine HCl 100 mg/ Folic (Acid 1 mg/ Sodium Chloride) 1,001.2 mls @ 500 mls/hr IV .Q2H1M STA; Protocol Stop: 11/26/22 15:19 Last Infusion: 11/26/22 15:45 Dose: 0 mls/hr Documented By: Admin: 11/26/22 13:45 Dose: 500 mls/hr Documented By: BROOK Morphine Sulfate (Morphine Sulfate 2 Mg/Ml Carp) 2 mg IV NOW STA Stop: 11/26/22 12:40 Last Admin: 11/26/22 12:49 Dose: 2 mg Documented By: QGV Morphine Sulfate (Morphine Sulfate 2 Mg/Ml Carp) 2 mg IV NOW STA Stop: 11/26/22 14:02 Last Admin: 11/26/22 15:08 Dose: 2 mg Documented By: SOPHIA Multivitamins/Minerals (Cerovite Adv Formula Tab) 1 tab PO ONE STA Stop: 11/26/22 13:20 Last Admin: 11/26/22 13:45 Dose: 1 tab Documented By: NMS Ondansetron HCl (Ondansetron Inj 2 Mg/Ml 2 Ml Vial) 4 mg IV NOW STA Stop: 11/26/22 12:40 Last Admin: 11/26/22 12:49 Dose: 4 mg Documented By: QGV Medical Decision Making Laboratory Data 11/26/22 12:23 11/26/22 12:18 Lab Results 11/26/22 11/26/22 11/26/22 Range/Units 12:18 12:18 12:23 WBC 6.46 (4.8-10.8) K/ul RBC 3.80 L (4.20-5.40) M/uL Hgb 13.1 (12.0-16.0) g/dl Hct 38.0 (37.0-47.0) % MCV 100.0 (80.0-100.0) fL MCH 34.5 H (25.0-34.0) pg MCHC 34.5 (32.0-36.0) g/dL RDW Std Deviation 50.6 H (36.4-46.3) fL RDW Coeff of Justina 13.8 (11.5-14.5) % Plt Count 121 L (130-400) K/uL MPV 9.8 (9.4-12.4) fL Immature Gran % (Auto) 0.3 % Neut % (Auto) 57.6 % Lymph % (Auto) 29.7 % Reynolds % (Auto) 9.9 % Eos % (Auto) 1.9 % Baso % (Auto) 0.6 % Neut # (Auto) 3.72 (1.40-6.50) K/uL Lymph # (Auto) 1.92 (1.2-3.4) K/uL Reynolds # (Auto) 0.64 H (0.11-0.59) K/uL Eos # (Auto) 0.12 (0-0.50) K/uL Baso # (Auto) 0.04 (0-0.2) K/uL Immature Gran # (Auto) 0.02 (0.01-0.20) K/uL PT 13.2 H (9.0-12.0) Seconds INR 1.2 H (0.9-1.1) APTT 28.8 (21.0-31.0) Seconds PTT Ratio 1.0 Sodium 133 L (136-145) mmol/L Potassium 4.8 (3.5-5.1) mmol/L Chloride 103 (98-107) mmol/L Carbon Dioxide 26 (21-32) mmol/L Anion Gap 4 (3-11) BUN 56 H (6-23) mg/dl Creatinine 1.97 H (0.6-1.2) mg/dl Est Cr Clr Drug Dosing Not Reportable Est GFR ( Amer) 30.8 ml/min Est GFR (Non-Af Amer) 26.6 ml/min BUN/Creatinine Ratio 28.4 H (10-20) Glucose 100 H (70-99(Fasting)) mg/dl Lactate (0.4-2.0) mmol/L Calcium 10.3 (8.6-10.3) mg/dl Magnesium 2.1 (1.7-2.4) mg/dl Total Bilirubin 1.1 H (0.2-1.0) mg/dl AST 48 H (13-39) U/L ALT 37 (7-52) U/L Alkaline Phosphatase 85 (34-104) U/L Total Protein 7.8 (6.0-8.3) gm/dl Albumin 3.6 (3.4-5.0) gm/dl Globulin 4.2 H (2.5-4.0) gm/dl Albumin/Globulin Ratio 0.9 (0.9-2) Lipase 226 H (11-82) U/L SARS-CoV-2, RNA, NAAT (NEGATIVE) 11/26/22 11/26/22 Range/Units 13:20 14:07 WBC (4.8-10.8) K/ul RBC (4.20-5.40) M/uL Hgb (12.0-16.0) g/dl Hct (37.0-47.0) % MCV (80.0-100.0) fL MCH (25.0-34.0) pg MCHC (32.0-36.0) g/dL RDW Std Deviation (36.4-46.3) fL RDW Coeff of Justina (11.5-14.5) % Plt Count (130-400) K/uL MPV (9.4-12.4) fL Immature Gran % (Auto) % Neut % (Auto) % Lymph % (Auto) % Reynolds % (Auto) % Eos % (Auto) % Baso % (Auto) % Neut # (Auto) (1.40-6.50) K/uL Lymph # (Auto) (1.2-3.4) K/uL Reynolds # (Auto) (0.11-0.59) K/uL Eos # (Auto) (0-0.50) K/uL Baso # (Auto) (0-0.2) K/uL Immature Gran # (Auto) (0.01-0.20) K/uL PT (9.0-12.0) Seconds INR (0.9-1.1) APTT (21.0-31.0) Seconds PTT Ratio Sodium (136-145) mmol/L Potassium (3.5-5.1) mmol/L Chloride (98-107) mmol/L Carbon Dioxide (21-32) mmol/L Anion Gap (3-11) BUN (6-23) mg/dl Creatinine (0.6-1.2) mg/dl Est Cr Clr Drug Dosing Est GFR ( Amer) ml/min Est GFR (Non-Af Amer) ml/min BUN/Creatinine Ratio (10-20) Glucose (70-99(Fasting)) mg/dl Lactate 1.3 (0.4-2.0) mmol/L Calcium (8.6-10.3) mg/dl Magnesium (1.7-2.4) mg/dl Total Bilirubin (0.2-1.0) mg/dl AST (13-39) U/L ALT (7-52) U/L Alkaline Phosphatase (34-104) U/L Total Protein (6.0-8.3) gm/dl Albumin (3.4-5.0) gm/dl Globulin (2.5-4.0) gm/dl Albumin/Globulin Ratio (0.9-2) Lipase (11-82) U/L SARS-CoV-2, RNA, NAAT NEGATIVE (NEGATIVE) Imaging Data Radiologist's Impression: Abdomen/Pelvis CT 11/26/22 13:04 CT SCAN OF THE ABDOMEN AND PELVIS WITHOUT IV CONTRAST; CT SCAN OF THE LUMBAR SPINE WITHOUT IV CONTRAST CLINICAL HISTORY: Low back pain. Cirrhosis. COMPARISON STUDY: Abdominal CT dated 03/28/2022. TECHNIQUE: CT scan of the abdomen and pelvis is performed from the lung bases to the proximal femora. Additionally, CT scan of the lumbar spine is performed from the lower thoracic spine to the sacrum. Images for both examinations are reviewed in the axial, sagittal, and coronal planes. IV contrast was not administered for this examination. Note that the examination is suboptimal with out IV contrast. A dose lowering technique was utilized adhering to the principles of ALARA. CT DOSE: 475.85 mGy.cm FINDINGS: Lung bases: The heart is normal in size and without pericardial effusion. Emphysematous change is suspected. There is bibasilar scarring/atelectasis. No airspace consolidation or pleural effusion is identified. There is a small hiatal hernia. Esophageal varices are noted. Liver: The unenhanced liver is cirrhotic in morphology and heterogeneous in attenuation. There is hypertrophy of the left lobe and nodularity of the hepatic surface contour. There is recanalization of the periumbilical vein. There is no intrahepatic biliary ductal dilatation. Gallbladder: The gallbladder is distended and contains calcified gallstones. Mild gallbladder wall thickening is nonspecific and likely related to adjacent hepatocellular disease. Spleen: Normal in size and attenuation. Pancreas: Calcifications in the pancreatic head/uncinate are nonspecific and could be seen with chronic pancreatitis. The pancreas appears edematous and there is infiltration around the pancreatic head and body no peripancreatic fluid collection is seen. Adrenal glands: Unremarkable. Kidneys: The unenhanced kidneys are normal in size and without hydronephrosis. There is a 3 mm nonobstructing right renal calculus. No left renal calculi are identified and there is no ureteral stone. There is no evidence of contour deforming renal mass lesion. Abdominal vasculature: The abdominal aorta is normal in course and caliber noting moderate to advanced atherosclerotic calcification. Bowel: There is mild to moderate sigmoid diverticulosis without CT evidence of acute diverticulitis. Moderate fecal retention is noted throughout the colon. There is no bowel obstruction. A duodenal diverticulum is incidentally noted. Th e appendix is well-visualized and normal. Peritoneum: There is no intraperitoneal free air or abdominal ascites. There is a fat-containing umbilical hernia. There is nonspecific infiltration along the mesentery. Lymphadenopathy: None. Pelvic viscera: The bladder, uterus, and adnexa are normal as visualized. Skeletal structures: The skeletal structures are osteopenic. See below for dedicated discussion of the lumbar spine. The bony pelvis and proximal femora appear intact. No lytic or blastic lesions are seen. LUMBAR SPINE: Vertebral body height and alignment are maintained throughout the lumbar spine. The transverse and spinous processes are intact. Tiny anterior and lateral marginal osteophytes are seen throughout. There is no spondylolysis. The disc spaces are preserved. There is no CT evidence of large disc herniation or central canal stenosis. There are left lateral disc bulges at L3-L4 and L4-L5. Lateral disc bulge is seen bilaterally at L5-S1. The paraspinous soft tissues are within normal limits. IMPRESSION: 1. The liver is cirrhotic in morphology and heterogeneous in attenuation. 2. Esophageal varices and recanalization of the periumbilical vein indicate portal hypertension. 3. No abdominal ascites is seen. 4. There is nonspecific infiltration around the pancreatic head and body. Correlate with clinical and laboratory findings for evidence of acute pancreatitis. 5. There is nonspecific infiltration identified throughout the central mesentery around the mesenteric vessels. The vessels cannot be assessed without IV contrast. If there is clinical concern for mesenteric vascular compromise a contrast enhanced CT should be obtained. 6. Cholelithiasis within a distended gallbladder. Mild gallbladder wall thickening is nonspecific and likely related to adjacent hepatocellular disease. Correlate with clinical and laboratory findings. If there is clinical concern for acute cholecystitis a right upper quadrant ultrasound would be appropriate. 7. Right-sided nephrolithiasis. 8. No acute bony abnormality is seen involving the lumbar spine. 9. Sigmoid diverticulosis without CT evidence of acute diverticulitis. 10. Additional findings as above. ACT 112: Negative or not required by law. Electronically signed by: Guillermo Vazquez M.D. 11/26/2022 1:[address] 11/26/22 13:04 CT SCAN OF THE ABDOMEN AND PELVIS WITHOUT IV CONTRAST; CT SCAN OF THE LUMBAR SPINE WITHOUT IV CONTRAST CLINICAL HISTORY: Low back pain. Cirrhosis. COMPARISON STUDY: Abdominal CT dated 03/28/2022. TECHNIQUE: CT scan of the abdomen and pelvis is performed from the lung bases to the proximal femora. Additionally, CT scan of the lumbar spine is performed from the lower thoracic spine to the sacrum. Images for both examinations are reviewed in the axial, sagittal, and coronal planes. IV contrast was not administered for this examination. Note that the examination is suboptimal without IV contrast. A dose lowering technique was utilized adhering to the principles of ALARA. CT DOSE: 475.85 mGy.cm FINDINGS: Lung bases: The heart is normal in size and without pericardial effusion. Emphysematous change is suspected. There is bibasilar scarring/atelectasis. No airspace consolidation or pleural effusion is identified. There is a small hiatal hernia. Esophageal varices are noted. Liver: The unenhanced liver is cirrhotic in morphology and heterogeneous in attenuation. There is hypertrophy of the left lobe and nodularity of the hepatic surface contour. There is recanalization of the periumbilical vein. There is no intrahepatic biliary ductal dilatation. Gallbladder: The gallbladder is distended and contains calcified gallstones. Mild gallbladder wall thickening is nonspecific and likely related to adjacent hepatocellular disease. Spleen: Normal in size and attenuation. Pancreas: Calcifications in the pancreatic head/uncinate are nonspecific and could be seen with chronic pancreatitis. The pancreas appears edematous and there is infiltration around the pancreatic head and body no peripancreatic fluid collection is seen. Adrenal glands: Unremarkable. Kidneys: The unenhanced kidneys are normal in size and without hydronephrosis. There is a 3 mm nonobstructing right renal calculus. No left renal calculi are identified and there is no ureteral stone. There is no evidence of contour deforming renal mass lesion. Abdominal vasculature: The abdominal aorta is normal in course and caliber noting moderate to advanced atherosclerotic calcification. Bowel: There is mild to moderate sigmoid diverticulosis without CT evidence of acute diverticulitis. Moderate fecal retention is noted throughout the colon. There is no bowel obstruction. A duodenal diverticulum is incidentally noted. The appendix is well-visualized and normal. Peritoneum: There is no intraperitoneal free air or abdominal ascites. There is a fat-containing umbilical hernia. There is nonspecific infiltration along the mesentery. Lymphadenopathy: None. Pelvic viscera: The bladder, uterus, and adnexa are normal as visualized. Skeletal structures: The skeletal structures are osteopenic. See below for dedicated discussion of the lumbar spine. The bony pelvis and proximal femora appear intact. No lytic or blastic lesions are seen. LUMBAR SPINE: Vertebral body height and alignment are maintained throughout the lumbar spine. The transverse and spinous processes are intact. Tiny anterior and lateral marginal osteophytes are seen throughout. There is no spondylolysis. The disc spaces are preserved. There is no CT evidence of large disc herniation or central canal stenosis. There are left lateral disc bulges at L3-L4 and L4-L5. Lateral disc bulge is seen bilaterally at L5-S1. The paraspinous soft tissues are within normal limits. IMPRESSION: 1. The liver is cirrhotic in morphology and heterogeneous in attenuation. 2. Esophageal varices and recanalization of the periumbilical vein indicate portal hypertension. 3. No abdominal ascites is seen. 4. There is nonspecific infiltration around the pancreatic head and body. Correlate with clinical and laboratory findings for evidence of acute pancreatitis. 5. There is nonspecific infiltration identified throughout the central mesentery around the mesenteric vessels. The vessels cannot be assessed without IV contrast. If there is clinical concern for mesenteric vascular compromise a contrast enhanced CT should be obtained. 6. Cholelithiasis within a distended gallbladder. Mild gallbladder wall thickening is nonspecific and likely related to adjacent hepatocellular disease. Correlate with clinical and laboratory findings. If there is clinical concern for acute cholecystitis a right upper quadrant ultrasound would be appropriate. 7. Right-sided nephrolithiasis. 8. No acute bony abnormality is seen involving the lumbar spine. 9. Sigmoid diverticulosis without CT evidence of acute diverticulitis. 10. Additional findings as above. ACT 112: Negative or not required by law. Electronically signed by: Guillermo Vazquez M.D. 11/26/2022 1:40 PM [facility] Narrative Patient was seen and evaluated as above in room B10. Review was performed of triage nursing notes and vital signs. I did review pertinent previous visits and patient history. After obtaining a thorough history and physical examination the above work up was performed. Patient presents to us today for evaluation of right low back pain that has been worsening over the past 9 to 10 days but acutely worsened over the past few days. Patient notes this happened after she lifted some heavy boxes. No evidence of cauda equina syndrome or infectious etiology. Patient believes that there is some edema to the lower extremities but on examination no significant edema is present. No fevers. Options of care were discussed with the patient. IV access was established. Labs were drawn. Patient notes that she did well with pain medication on her previous visit and that was found to be morphine for pain and Zofran for nausea. I did find it reasonable provide small doses of these medications. CT scan was obtained of the abdomen/pelvis as well as recon images of the L-spine. Labs reveal no leukocytosis or concerning anemia. Mild thrombocytopenia 121 which is similar to previous and actually improved. Mild elevation in INR at 1.2. Mild hyponatremia 133. There is RAVI with creatinine of 1.97 and BUN of 56 significantly elevated compared to her baseline. T. bili 1.1 with AST at 48. Bilirubin is actually improved compared to previous. There is lipase elevation at 226 which may be potentially the source of her back pain but she is nontender in the abdomen. There is no abdominal pain. I did have to convert the CT scan of the abdomen/pelvis as well as L-spine recon without contrast noting the RAVI. Results are as above. There is cirrhotic liver noted. Esophageal varices. No abdominal ascites. There is nonspecific infiltration around the pancreatic head and body and with the patient having back pain this could be secondary to pancreatitis noting the elevated lipase as well which is new compared to previous. There is comment of nonspecific infiltration through the central mesentery and mesenteric vessels. Unfortunately with the patient's RAVI there is concern about adding contrast and therefore lactate was added which was found to be within normal range. Low suspicion for any type of ischemic process within the abdomen. There are stones in the gallbladder noted. Right-sided kidney stone which is not really felt to be causing her pain presently. At this time with the patient having an RAVI, lipase elevation in the setting of possible pancreatitis by CT I do believe that further evaluation and management in the inpatient setting is warranted. Patient amenable to plan of care. IV fluids with multivitamins and thiamine provided here. Case discussed with the hospitalist service. Please refer to further documentation regarding her stay. Case was discussed with the attending physician. GCS: 15 In the evaluation and treatment of this patient the following differential diagnoses were entertained: Intestinal perforation, renal calculi, UTI, py elonephritis, cauda equina syndrome, lumbar sprain, strain, lumbar fracture, pancreatitis, epidural abscess, among others Impression & Plan Right low back pain, RAVI (acute kidney injury), Thrombocytopenia, Pancreatitis Discharge Plan Visit Data Chief Complaint: Back Injury/Pain Stated Complaint: BACK PAIN,CIRRHOSIS OF LIVER ED Provider: Crispin Valdez ED Midlevel Provider: Sterling Cunningham Discharge Problem: Right low back pain, RAVI (acute kidney injury), Thrombocytopenia, Pancreatitis Patient Disposition: Admitted As Inpatient Condition: Good Forms Stand Alone Forms: My [facility] [employer] Prescriptions Prescriptions: No Action magnesium chloride 64 mg tablet,delayed release (DR/EC) 64 mg PO DAILY Qty: 30 3RF furosemide 40 mg tablet 20 mg PO QAM 30 Days Qty: 15 5RF folic acid 1 mg tablet 1 mg PO QAM 30 Days Qty: 30 5RF spironolactone 100 mg tablet 100 mg PO QAM 30 Days Qty: 30 5RF Metamucil 3.4 gram/5.4 gram Powder 1 tbsp PO BID Rx Instructions: mix into at least 8 oz of water or juice before administering Medical Marijuana Card 1 dose UD PRN (Reason: Anxiety) fexofenadine [Venessa] 180 mg Tablet 180 mg PO DAILY acetaminophen [Tylenol Extra Strength] 500 mg Tablet 1,000 mg PO DIRECTED PRN (Reason: Pain) Referrals Referrals: Jethro Mills DO [Primary Care Provider] -
[2022-11-26 12:43] LABS: Basophils # (auto) 0.04 K/uL (0-0.2); Basophils % (auto) 0.6 %; Eosinophils # (auto) 0.12 K/uL (0-0.50); Eosinophils % (auto) 1.9 %; Hemoglobin 13.1 g/dl (12.0-16.0); Immature Granulocytes # (auto) 0.02 K/uL (0.01-0.20); Immature Granulocytes % (auto) 0.3 %; Lymphocytes # (auto) 1.92 K/uL (1.2-3.4); Lymphocytes % (auto) 29.7 %; Mean Corpuscular Hemoglobin 34.5 pg (25.0-34.0); Mean Corpuscular Hgb Conc 34.5 g/dL (32.0-36.0); Mean Platelet Volume 9.8 fL (9.4-12.4); Monocytes # (auto) 0.64 K/uL (0.11-0.59); Monocytes % (auto) 9.9 %; Neutrophils # (auto) 3.72 K/uL (1.40-6.50); Neutrophils % (auto) 57.6 %; Platelet Count 121 K/uL (130-400); RDW Coefficient of Variation 13.8 % (11.5-14.5); RDW Standard Deviation 50.6 fL (36.4-46.3); White Blood Count 6.46 K/ul (4.8-10.8)
[2022-11-26 13:01] LABS: Alanine Aminotransferase 37 U/L (7-52); Albumin Globulin Ratio 0.9 (0.9-2); Albumin Level 3.6 gm/dl (3.4-5.0); Alkaline Phosphatase 85 U/L (34-104); Anion Gap 4 (3-11); Aspartate Aminotransferase 48 U/L (13-39); BUN Creatinine Ratio 28.4 (10-20); Bilirubin,Total 1.1 mg/dl (0.2-1.0); Blood Urea Nitrogen 56 mg/dl (6-23); Calcium 10.3 mg/dl (8.6-10.3); Carbon Dioxide 26 mmol/L (21-32); Chloride 103 mmol/L (98-107); Est GFR (African American) 30.8 ml/min; Est GFR (Non-African American) 26.6 ml/min; Globulin 4.2 gm/dl (2.5-4.0); Glucose 100 mg/dl (70-99(Fasting)); Lipase 226 U/L (11-82); Magnesium 2.1 mg/dl (1.7-2.4); Potassium 4.8 mmol/L (3.5-5.1); Sodium 133 mmol/L (136-145); Total Protein 7.8 gm/dl (6.0-8.3)
[2022-11-26 13:19] LABS: INR 1.2 (0.9-1.1); Partial Thromboplastin Time 28.8 Seconds (21.0-31.0); Prothrombin Time 13.2 Seconds (9.0-12.0)
[2022-11-26] MEDS ORDERED: CEROVITE ADV FORMULA TAB PO STA (13:19)
[2022-11-26] MEDS ORDERED: THIAMINE HCL 100 MG, FOLIC ACID 1 MG in SODIUM CHLORIDE 0.9% 1000ML 1,000 ML IV STA (13:19)
--- NOTE | 2022-11-26 13:42 | CT Scan Report ---
CT SCAN OF THE ABDOMEN AND PELVIS WITHOUT IV CONTRAST; CT SCAN OF THE LUMBAR SPINE WITHOUT IV CONTRAS T CLINICAL HISTORY: Low back pain. Cirrhosis. COMPARISON STUDY: Abdominal CT dated 03/28/2022. TECHNIQUE: CT scan of the abdomen and pelvis is performed from the lung bases to the proximal femora. Additionally, CT scan of the lumbar spine is performed from the lower thoracic spine to the sacrum. Images for both examinations are reviewed in the axial, sagittal, and coronal planes. IV contrast was not administered for this examination. Note that the examination is suboptimal without IV contrast. A dose lowering technique was utilized adhering to the principles of ALARA. CT DOSE: 475.85 mGy.cm FINDINGS: Lung bases: The heart is normal in size and without pericardial effusion. Emphysematous change is liz pected. There is bibasilar scarring/atelectasis. No airspace consolidation or pleural effusion is leila ntified. There is a small hiatal hernia. Esophageal varices are noted. Liver: The unenhanced liver is cirrhotic in morphology and heterogeneous in attenuation. There is hyp ertrophy of the left lobe and nodularity of the hepatic surface contour. There is recanalization of t he periumbilical vein. There is no intrahepatic biliary ductal dilatation. Gallbladder: The gallbladder is distended and contains calcified gallstones. Mild gallbladder wall th ickening is nonspecific and likely related to adjacent hepatocellular disease. Spleen: Normal in size and attenuation. Pancreas: Calcifications in the pancreatic head/uncinate are nonspecific and could be seen with chron ic pancreatitis. The pancreas appears edematous and there is infiltration around the pancreatic head and body no peripancreatic fluid collection is seen. Adrenal glands: Unremarkable. Kidneys: The unenhanced kidneys are normal in size and without hydronephrosis. There is a 3 mm nonobs tructing right renal calculus. No left renal calculi are identified and there is no ureteral stone. T here is no evidence of contour deforming renal mass lesion. Abdominal vasculature: The abdominal aorta is normal in course and caliber noting moderate to advance d atherosclerotic calcification. Bowel: There is mild to moderate sigmoid diverticulosis without CT evidence of acute diverticulitis. Moderate fecal retention is noted throughout the colon. There is no bowel obstruction. A duodenal div erticulum is incidentally noted. The appendix is well-visualized and normal. Peritoneum: There is no intraperitoneal free air or abdominal ascites. There is a fat-containing umbi lical hernia. There is nonspecific infiltration along the mesentery. Lymphadenopathy: None. Pelvic viscera: The bladder, uterus, and adnexa are normal as visualized. Skeletal structures: The skeletal structures are osteopenic. See below for dedicated discussion of th e lumbar spine. The bony pelvis and proximal femora appear intact. No lytic or blastic lesions are se en. LUMBAR SPINE: Vertebral body height and alignment are maintained throughout the lumbar spine. The tra nsverse and spinous processes are intact. Tiny anterior and lateral marginal osteophytes are seen thr oughout. There is no spondylolysis. The disc spaces are preserved. There is no CT evidence of large d isc herniation or central canal stenosis. There are left lateral disc bulges at L3-L4 and L4-L5. Late ral disc bulge is seen bilaterally at L5-S1. The paraspinous soft tissues are within normal limits. IMPRESSION: 1. The liver is cirrhotic in morphology and heterogeneous in attenuation. 2. Esophageal varices and recanalization of the periumbilical vein indicate portal hypertension. 3. No abdominal ascites is seen. 4. There is nonspecific infiltration around the pancreatic head and body. Correlate with clinical and laboratory findings for evidence of acute pancreatitis. 5. There is nonspecific infiltration identified throughout the central mesentery around the mesenteri c vessels. The vessels cannot be assessed without IV contrast. If there is clinical concern for mesen teric vascular compromise a contrast enhanced CT should be obtained. 6. Cholelithiasis within a distended gallbladder. Mild gallbladder wall thickening is nonspecific and likely related to adjacent hepatocellular disease. Correlate with clinical and laboratory findings. If there is clinical concern for acute cholecystitis a right upper quadrant ultrasound would be appro priate. 7. Right-sided nephrolithiasis. 8. No acute bony abnormality is seen involving the lumbar spine. 9. Sigmoid diverticulosis without CT evidence of acute diverticulitis. 10. Additional findings as above. ACT 112: Negative or not required by law. Electronically signed by: Guillermo Vazquez M.D. 11/26/2022 1:40 PM
--- NOTE | 2022-11-26 14:24 | History & Physical Report ---
Date of Service November 26, 2022 Assessment & Plan (1) Right low back pain: Plan: 62-year-old female past medical history of alcoholic cirrhosis, thrombocytopenia who presents with right side/lower back pain since lifting 20-25lbs boxes 10 days ago with exacerbation to severe intensity since 11/22/22. Considered musculoskeletal versus referred pain open (pancreatitis versus cholelithiasis. also considered liver inflammation). Less likely from the 3 mm nonobstructing right nephrolithiasis. No leukocytosis. Lower suspicion for shingles. Plan will be pain control and further expiration of the gallbladder etiology via ultrasound. Exam (strongly affected by movement) is most suggestive of MSK origin. PT/OT evals. While lipase typically isn't trended, will repeat lipasefor diagnostic purposes. If severely climbing lipase, could consider MRCP. US w/ cholelithi asis; passed/passing gallstone also considered. (2) Pancreatitis: Plan: Per CT abd, nonspecific infiltration around the pancreatic head and body. Lipase 226. BISAP 2 points. Gentle fluids in setting of cirrhosis. Unclear/less likely that this is main cause of the right low back pain. (3) Cirrhosis, alcoholic: Plan: Chronic. Alcohol use disorder in remission Holding home furosemide and spironolactone currently in setting of RAVI MELD-Na 18 points. 6% estimated 3 month mortality (4) RAVI (acute kidney injury): Plan: Baseline 1-1.2s. 1.97 this admission. In setting of cirrhosis, will consult n toby. (5) Nicotine abuse: Plan: 1ppd, will order nicotine patch 21mg (6) Thrombocytopenia: Plan: Chronic, at baseline. Level is acceptable for DVT prophylaxis (7) Anxiety: Plan: Stable, not on medication (8) Medical marijuana use: Plan: Reports occasional use as outpatient. Not ordered at this time. Plan F/E/N: low Na. NSS 80/hr x2 bags dvt ppx: sq heparin 5000u q12. SCDs. code: full dispo: med tele History of Present Illness Chief Complaint: Intractable low back pain Primary Care Provider: Jethro Mills DO 62-year-old female past medical history of alcoholic cirrhosis, thrombocytopenia who presents with right side/lower back pain since lifting 20-25lbs boxes 10 days ago with exacerbation to severe intensity since 11/22/22. She was seen by PCP today who sent her to the ED. She has not had appendectomy or cholecystectomy. She had a normal HIDA scan 09/2022 for an equivocal gallbladder on CT abd in 08/2022. Denies having family history of gallbladder disease. He states she took her home medications this morning. ED course: Morphine 2 mg IV x2, zofran. Allergies Allergy/AdvReac Type Severity Reaction Status Date / Time No Known Allergies Allergy Unknown Verified 11/26/22 14:54 Home Medications Medication Instructions Recorded Confirmed Type Medical Marijuana Card 1 dose UD PRN Anxiety 08/22/22 11/26/22 History psyllium husk 3.4 gram/5.4 gram 1 tbsp PO BID 08/22/22 11/26/22 History oral powder (Metamucil) magnesium chloride 64 mg 64 mg PO DAILY #30 tabs 09/10/22 11/26/22 Rx (magnesium chloride) tablet,delayed release furosemide 40 mg tablet 20 mg PO QAM 30 days #15 tabs 10/10/22 11/26/22 Rx folic acid 1 mg tablet 1 mg PO QAM 30 days #30 tabs 10/16/22 11/26/22 Rx spironolactone 100 mg tablet 100 mg PO QAM 30 days #30 tabs 10/16/22 11/26/22 Rx acetaminophen 500 mg tablet 1,000 mg PO DIRECTED PRN Pain 11/26/22 11/26/22 History (Tylenol Extra Strength) fexofenadine 180 mg tablet 180 mg PO DAILY 11/26/22 11/26/22 History Past Med/Surg History Medical History (Updated 11/26/22 @ 16:13 by Sterling Cunningham PA-C) Anxiety Cirrhosis of liver History of anesthesia reaction REMOTE HX HAD GAS ANESTHESIA WITH D&C/LUNG INFECTION WITHIN 24 HOURS AFTERWARDS ..TOLD TO AVOID GENERAL ANESTHESIA History of asthma CHILDHOOD History of COVID-19 HOME TEST + JUL 03 2022 - NO CURRENT S/ Low blood pressure CHRONIC ALL MY LIFE Vision decreased 11% OF VISION RIGHT EYE/HX ACCIDENT RELATED FAST MOTION MAKES ME SICK Surgical History History of D&C History of tooth extraction Family History Grandmother (Maternal) Breast cancer Mother Brain tumor due to accident Denies family history of Ovarian cancer Prostate cancer Diabetes Myocardial infarction Lung cancer Colorectal cancer Stroke Social History Smoking Status: Current every day smoker Tobacco Type: Cigarettes Age Started Using Tobacco: 13; packs per day: 1; Cigarettes Per Day: 3/4PPD ADVISED NPO; Second Hand Exposure: No; Do You Dip or Chew Tobacco: No; Tobacco Cessation Education Requested by Patient: No Hx Alcohol Use: No (since 2021) Hx Substance Use: Yes Last Used Substance: Days (ago) Substance Use Type Other:: MEDICAL MARIJUANA CARD /INSTRUCTED TO BRING Preferred Language: Azeri Communication Ability: Effective Visual Impairment: Limited Hearing Ability: Normal Principal Developer Required: No Beliefs That Will Affect Care: None marital status: Current Living Situation: Spouse current occupational status: unemployed How many Children do You have: 1 Feels Safe at Home: Yes Safety Concerns: Feels Safe At This Time Childhood Exposure to Second-Hand Smoke: Yes Diet: low salt and regular caffeine: Yes Dental Care, Regularly: No Physical Activity Frequency: Does not Exercise Seatbelt Use: always Sunscreen Use: No Do you think of yourself as: straight/heterosexual Assistive Devices: Cane, Denture - Upper, Denture - Lower and Glasses Review of Systems Review of Systems: All systems reviewed & are unremarkable except as noted in HPI & below Denies rash of flank Physical Exam Physical Exam: General: Grossly A&O. NAD. Cooperative. HEENT: Atraumatic, normocephalic. EOMI Pulm: CTAB. -wheezes, -rales, -rhonchi. No respiratory distress. Cardiac: RRR, -mrg. 1+ bilateral lower extremity edema, which patient states is new since last night. Abdominal: Nontender, nondistended, soft. Back: No CVA ttp. No reproducible right low back tenderness to palpation. Negative straight leg raise bilaterally. When lifting left lower extremity with knee bent patient had/severe exacerbation of the right low back pain. The same pain that was brought on by range of motion of hip in all directions such as twisting side to side and bending. Musculoskeletal: Moving extremities. Neuro: Normal sensation of extremities. Results & Data Results & Data Vital Signs (Past 12 Hours) Vital Signs Temp Pulse Resp BP Pulse Ox O2 Del Method 11/26/22 13:20 86 11/26/22 12:13 36.5 C 84 18 95/52 L 98 Room Air Laboratory Results Cardiac Enzymes 11/26/22 Range/Units 12:18 AST 48 H (13-39) U/L Coagulation 11/26/22 Range/Units 12:18 PT 13.2 H (9.0-12.0) Seconds APTT 28.8 (21.0-31.0) Seconds CBC 11/26/22 Range/Units 12:23 WBC 6.46 (4.8-10.8) K/ul RBC 3.80 L (4.20-5.40) M/uL Hgb 13.1 (12.0-16.0) g/dl Hct 38.0 (37.0-47.0) % Plt Count 121 L (130-400) K/uL Neut # (Auto) 3.72 (1.40-6.50) K/uL Lymph # (Auto) 1.92 (1.2-3.4) K/uL Gillespie # (Auto) 0.64 H (0.11-0.59) K/uL Eos # (Auto) 0.12 (0-0.50) K/uL Baso # (Auto) 0.04 (0-0.2) K/uL Comprehensive Metabolic Panel 11/26/22 Range/Units 12:18 Sodium 133 L (136-145) mmol/L Potassium 4.8 (3.5-5.1) mmol/L Chloride 103 (98-107) mmol/L Carbon Dioxide 26 (21-32) mmol/L BUN 56 H (6-23) mg/dl Creatinine 1.97 H (0.6-1.2) mg/dl Glucose 100 H (70-99(Fasting)) mg/dl Calcium 10.3 (8.6-10.3) mg/dl AST 48 H (13-39) U/L ALT 37 (7-52) U/L Alkaline Phosphatase 85 (34-104) U/L Total Protein 7.8 (6.0-8.3) gm/dl Albumin 3.6 (3.4-5.0) gm/dl Intake and Output 11/25/22 11/26/22 11/26/22 22:59 06:59 14:59 Other: Weight 56.9 kg Weight Measurement Method Built in [facility] Patient Weight 11/27/22 06:59 Weight 56.9 kg Diagnostic Findings Abdomen/Pelvis CT 11/26/22 13:04 CT SCAN OF THE ABDOMEN AND PELVIS WITHOUT IV CONTRAST; CT SCAN OF THE LUMBAR SPINE WITHOUT IV CONTRAST CLINICAL HISTORY: Low back pain. Cirrhosis. COMPARISON STUDY: Abdominal CT dated 03/28/2022. TECHNIQUE: CT scan of the abdomen and pelvis is performed from the lung bases to the proximal femora. Additionally, CT scan of the lumbar spine is performed from the lower thoracic spine to the sacrum. Images for both examinations are reviewed in the axial, sagittal, and coronal planes. IV contrast was not administered for this examination. Note that the examination is suboptimal without IV contrast. A dose lowering technique was utilized adhering to the principles of ALARA. CT DOSE: 475.85 mGy.cm FINDINGS: Lung bases: The heart is normal in size and without pericardial effusion. Emphysematous change is suspected. There is bibasilar scarring/atelectasis. No airspace consolidation or pleural effusion is identified. There is a small hiatal hernia. Esophageal varices are noted. Liver: The unenhanced liver is cirrhotic in morphology and heterogeneous in attenuation. There is hypertrophy of the left lobe and nodularity of the hepatic surface contour. There is recanalization of the periumbilical vein. There is no intrahepatic biliary ductal dilatation. Gallbladder: The gallbladder is distended and contains calcified gallstones. Mild gallbladder wall thickening is nonspecific and likely related to adjacent hepatocellular disease. Spleen: Normal in size and attenuation. Pancreas: Calcifications in the pancreatic head/uncinate are nonspecific and could be seen with chronic pancreatitis. The pancreas appears edematous and there is infiltration around the pancreatic head and body no peripancreatic fluid collection is seen. Adrenal glands: Unremarkable. Kidneys: The unenhanced kidneys are normal in size and without hydronephrosis. There is a 3 mm nonobstructing right renal calculus. No left renal calculi are identified and there is no ureteral stone. There is no evidence of contour deforming renal mass lesion. Abdominal vasculature: The abdominal aorta is normal in course and caliber noting moderate to advanced atherosclerotic calcification. Bowel: There is mild to moderate sigmoid diverticulosis without CT evidence of acute diverticulitis. Moderate fecal retention is noted throughout the colon. There is no bowel obstruction. A duodenal diverticulum is incidentally noted. The appendix is well-visualized and normal. Peritoneum: There is no intraperitoneal free air or abdominal ascites. There is a fat-containing umbilical hernia. There is nonspecific infiltration along the mesentery. Lymphadenopathy: None. Pelvic viscera: The bladder, uterus, and adnexa are normal as visualized. Skeletal structures: The skeletal structures are osteopenic. See below for dedicated discussion of the lumbar spine. The bony pelvis and proximal femora appear intact. No lytic or blastic lesions are seen. LUMBAR SPINE: Vertebral body height and alignment are maintained throughout the lumbar spine. The transverse and spinous processes are intact. Tiny anterior and lateral marginal osteophytes are seen throughout. There is no spondylolysis. The disc spaces are preserved. There is no CT evidence of large disc herniation or central canal stenosis. There are left lateral disc bulges at L3-L4 and L4-L5. Lateral disc bulge is seen bilaterally at L5-S1. The paraspinous soft tissues are within normal limits. IMPRESSION: 1. The liver is cirrhotic in morphology and heterogeneous in attenuation. 2. Esophageal varices and recanalization of the periumbilical vein indicate portal hypertension. 3. No abdominal ascites is seen. 4. There is nonspecific infiltration around the pancreatic head and body. Correlate with clinical and laboratory findings for evidence of acute pancreatitis. 5. There is nonspecific infiltration identified throughout the central mesentery around the mesenteric vessels. The vessels cannot be assessed without IV contrast. If there is clinical concern for mesenteric vascular compromise a contrast enhanced CT should be obtained. 6. Cholelithiasis within a distended gallbladder. Mild gallbladder wall thickening is nonspecific and likely related to adjacent hepatocellular disease. Correlate with clinical and laboratory findings. If there is clinical concern for acute cholecystitis a right upper quadrant ultrasound would be appropriate. 7. Right-sided nephrolithiasis. 8. No acute bony abnormality is seen involving the lumbar spine. 9. Sigmoid diverticulosis without CT evidence of acute diverticulitis. 10. Additional findings as above. ACT 112: Negative or not required by law. Electronically signed by: Guillermo Vazquez M.D. 11/26/2022 1:[address] 11/26/22 13:04 CT SCAN OF THE ABDOMEN AND PELVIS WITHOUT IV CONTRAST; CT SCAN OF THE LUMBAR SPINE WITHOUT IV CONTRAST CLINICAL HISTORY: Low back pain. Cirrhosis. COMPARISON STUDY: Abdominal CT dated 03/28/2022. TECHNIQUE: CT scan of the abdomen and pelvis is performed from the lung bases to the proximal femora. Additionally, CT scan of the lumbar spine is performed from the lower thoracic spine to the sacrum. Images for both examinations are reviewed in the axial, sagittal, and coronal planes. IV contrast was not administered for this examination. Note that the examination is suboptimal without IV contrast. A dose lowering technique was utilized adhering to the principles of ALARA. CT DOSE: 475.85 mGy.cm FINDINGS: Lung bases: The heart is normal in size and without pericardial effusion. Emphysematous change is suspected. There is bibasilar scarring/atelectasis. No airspace consolidation or pleural effusion is identified. There is a small hiatal hernia. Esophageal varices are noted. Liver: The unenhanced liver is cirrhotic in morphology and heterogeneous in attenuation. There is hypertrophy of the left lobe and nodularity of the hepatic surface contour. There is recanalization of the periumbilical vein. There is no intrahepatic biliary ductal dilatation. Gallbladder: The gallbladder is distended and contains calcified gallstones. Mild gallbladder wall thickening is nonspecific and likely related to adjacent hepatocellular disease. Spleen: Normal in size and attenuation. Pancreas: Calcifications in the pancreatic head/uncinate are nonspecific and could be seen with chronic pancreatitis. The pancreas appears edematous and there is infiltration around the pancreatic head and body no peripancreatic fluid collection is seen. Adrenal glands: Unremarkable. Kidneys: The unenhanced kidneys are normal in size and without hydronephrosis. There is a 3 mm nonobstructing right renal calculus. No left renal calculi are identified and there is no ureteral stone. There is no evidence of contour deforming renal mass lesion. Abdominal vasculature: The abdominal aorta is normal in course and caliber noting moderate to advanced atherosclerotic calcification. Bowel: There is mild to moderate sigmoid diverticulosis without CT evidence of acute diverticulitis. Moderate fecal retention is noted throughout the colon. There is no bowel obstruction. A duodenal diverticulum is incidentally noted. The appendix is well-visualized and normal. Peritoneum: There is no intraperitoneal free air or abdominal ascites. There is a fat-containing umbilical hernia. There is nonspecific infiltration along the mesentery. Lymphadenopathy: None. Pelvic viscera: The bladder, uterus, and adnexa are normal as visualized. Skeletal structures: The skeletal structures are osteopenic. See below for dedicated discussion of the lumbar spine. The bony pelvis and proximal femora appear intact. No lytic or blastic lesions are seen. LUMBAR SPINE: Vertebral body height and alignment are maintained throughout the lumbar spine. The transverse and spinous processes are intact. Tiny anterior and lateral marginal osteophytes are seen throughout. There is no spondylolysis. The disc spaces are preserved. There is no CT evidence of large disc herniation or central canal stenosis. There are left lateral disc bulges at L3-L4 and L4-L5. Lateral disc bulge is seen bilaterally at L5-S1. The paraspinous soft tissues are within normal limits. IMPRESSION: 1. The liver is cirrhotic in morphology and heterogeneous in attenuation. 2. Esophageal varices and recanalization of the periumbilical vein indicate portal hypertension. 3. No abdominal ascites is seen. 4. There is nonspecific infiltration around the pancreatic head and body. Correlate with clinical and laboratory findings for evidence of acute pancreatitis. 5. There is nonspecific infiltration identified throughout the central mesentery around the mesenteric vessels. The vessels cannot be assessed without IV contrast. If there is clinical concern for mesenteric vascular compromise a contrast enhanced CT should be obtained. 6. Cholelithiasis within a distended gallbladder. Mild gallbladder wall thickening is nonspecific and likely related to adjacent hepatocellular disease. Correlate with clinical and laboratory findings. If there is clinical concern for acute cholecystitis a right upper quadrant ultrasound would be appropriate. 7. Right-sided nephrolithiasis. 8. No acute bony abnormality is seen involving the lumbar spine. 9. Sigmoid diverticulosis without CT evidence of acute diverticulitis. 10. Additional findings as above. ACT 112: Negative or not required by law. Electronically signed by: Guillermo Vazquez M.D. 11/26/2022 1:40 PM ECG Additional Comments: no ecg ordered Code Status & VTE Plan Code Status full VTE Prophylaxis Plan VTE Prophylaxis will be ordered: Yes Supervising Physician Co-Signing Physician Notes Moni Kelley is a 62yo F with a hx of thrombocytopenis and etoh cirrhosis who presents with several days of right lower back pain after lifting/moving boxes around her home. initally wanst bad but gradually increased over the weekend. US: 1. The liver is cirrhotic in morphology and heterogeneous in echotexture. 2. Cholelithiasis within a distended gallbladder. Gallbladder wall thickening and trace pericholecystic fluid are nonspecific findings and may be related to adjacent hepatocellular disease. A sonographic De La O's sign is reportedly absent. Findings are equivocal for acute cholecystitis and clinical/laboratory correlation will be essential. If warranted a nuclear hepatobiliary scan could be performed to assess for cystic duct obstruction.3. There is no intra or extrahepatic biliary ductal dilatation. CT-A/P/Lumbar: 1. The liver is cirrhotic in morphology and heterogeneous in attenuation. 2. Esophageal varices and recanalization of the periumbilical vein indicate portal hypertension. 3. No abdominal ascites is seen. 4. There is nonspecific infiltration around the pancreatic head and body. Correlate with clinical and laboratory findings for evidence of acute pancreatitis. 5. There is nonspecific infiltration identified throughout the central mesentery around the mesenteric vessels. The vessels cannot be assessed without IV contrast. If there is clinical concern for mesenteric vascular compromise a contrast enhanced CT should be obtained. 6. Cholelithiasis within a distended gallbladder. Mild gallbladder wall thickening is nonspecific and likely related to adjacent hepatocellular disease. Correlate with clinical and laboratory findings. If there is clinical concern for acute cholecystitis a right upper quadrant ultrasound would be appropriate.7. Right-sided nephrolithiasis. 8. No acute bony abnormality is seen involving the lumbar spine. 9. Sigmoid diverticulosis without CT evidence of acute diverticulitis. On exam RL back pain with movement. Abdomen is benign. Cholelithiasis are noted with some gallbladder thickening which may be 2/2 cirrhosis. Followup ultrasound equivocal for cholecystitis. Pt is with elevated bili but improved from prior.AST elevated, but again improved from prior. Lipase is newly elevated, although clinically pain is inconsistent with pancreatitis and is not having pain with meals. Agree wth gentle fluids given hx of ascites and mild clinical picture. No evidence of nephrolithiasis causing obstructive RAVI. Will treat at prerenal with fluids as noted and trend. Could treat for pancreatitis and follow-up with MRCP, however patient's clinical picture is very inconsistent with this. While would not trend lipase typically, this her pain is more consistent with MSK will treat as mild prerenal and repeat a lipase in the morning. If improved/normalized would defer and follow treatment for MSK back pain, if worsened can follow-up with MRCP at that point. Continue diet as tolerated. Agree with assessment and management above Resident Activity Tracking Resident Involvement: Resident Care Provided Care Provided: [facility]
[2022-11-26] MEDS ORDERED: NICOTINE 7 MG/24 HR TDSY TD STA (16:09)
[2022-11-26] MEDS ORDERED: NICOTINE 21 MG/24 HR TDSY TD SCH (16:15)
[2022-11-26 16:18] LABS: Appearance Urine Clear (Clear); Bilirubin Urine Negative (Negative); Blood Urine Negative (Negative); Color Urine Yellow; Glucose Urine UA Negative (Negative); Ketones Urine Negative (Negative); Leukocyte Esterase Urine Negative (Negative); Nitrite Urine Negative (Negative); Protein Urine Negative (Negative); Specific Gravity Urine 1.012 (1.000-1.030); Urobilinogen Urine Negative (Negative)
[2022-11-26] MEDS: NICOTINE 21 MG/24 HR TDSY TD SCH (16:23)
[2022-11-26] MEDS: SODIUM CHLORIDE 0.9% 1000ML 1,000 ML IV SCH (16:23)
[2022-11-26] MEDS ORDERED: LIDOCAINE 5% 1 PATCH TD SCH (17:15)
--- NOTE | 2022-11-26 17:43 | Ultrasound Report ---
ULTRASOUND RIGHT UPPER QUADRANT ABDOMEN CLINICAL HISTORY: Cirrhosis. Generalized abdominal pain. COMPARISON STUDY: Abdominal CT performed the same day 11/26/2022. TECHNIQUE: Real-time, grayscale, and color flow sonography of the right upper quadrant of the abdomen was performed. Images are reviewed in the transverse and longitudinal planes. FINDINGS: Liver: The liver is cirrhotic morphology and heterogeneous in echotexture. There is nodularity of the hepatic surface contour There is no intrahepatic biliary ductal dilatation. The main portal vein is patent. Gallbladder: The gallbladder is distended and contains numerous layering gallstones. There is nonspec ific gallbladder wall thickening. This measures up to 3 mm. Trace pericholecystic fluid is observed. A sonographic De La O's sign is reportedly absent. The common bile duct measures up to 0.[address] Pancreas: Visualized portions of the pancreatic head and body are grossly normal in appearance. The s plenic vein is patent. Right kidney: Survey images of the right kidney demonstrate cortical atrophy. Echotexture is normal. There is no hydronephrosis. Ascites: There is trace perihepatic ascites. IMPRESSION: 1. The liver is cirrhotic in morphology and heterogeneous in echotexture. 2. Cholelithiasis within a distended gallbladder. Gallbladder wall thickening and trace pericholecyst ic fluid are nonspecific findings and may be related to adjacent hepatocellular disease. A sonographi c De La O's sign is reportedly absent. Findings are equivocal for acute cholecystitis and clinical/lab oratory correlation will be essential. If warranted a nuclear hepatobiliary scan could be performed t o assess for cystic duct obstruction. 3. There is no intra or extrahepatic biliary ductal dilatation. ACT 112: Negative or not required by law. Electronically signed by: Guillermo Vazquez M.D. 11/26/2022 5:41 PM
[2022-11-26] MEDS: MoRPHine SULFATE 2 MG/ML CARP IV PRN (18:34)
--- NOTE | 2022-11-26 19:49 | Nephrology Consultation ---
Date of Consultation November 26, 2022 Assessment & Plan (1) RAVI (acute kidney injury): Non-oliguric. BP acceptable. Appears slightly volume depleted. Urine is bland and acellular. Kidneys are unobstructed on CT. Baseline creatinine in August 1.0 mg/dL. Continue NSS to encourage positive fluid balance. Document strict I/O's. Repeat metabolic profile in the AM. Medications appropriately dosed for kidney function. (2) Right low back pain: Avoid NSAIDS. Appears MSK by assessment. Evaluation and management per hospital service. (3) Cirrhosis, alcoholic: MELD 18. Complications include ascites. Clinical presentation atypical for HRS but I certainly cannot exclude at this time. IV saline is being provided with prospective monitoring. History of Present Illness Reason for Consultation: RAVI in setting of cirrhosis Requesting Physician: Sravan Bermudez MD Attending Physician: Blayne Cuenca MD History of Present Illness Moni Kelley is a 62 year-old female with alcoholic cirrhosis who presented to the [facility] ER today for evaluation of severe lower back pain. Symptoms started after moving some boxes over a week ago. Moni denies similar symptoms in the past. She notes that pain has been progressively unbearable over the past few days. She has taken Tylenol at home without relief. She does not take any NSAIDS. She denies any history of trauma otherwise. Unfortunately at the time of my evaluation this evening, she continued to struggle with pain. Lidocaine patch had been applied and IV morphine given. The patient was seen and evaluated with her at the bedside. Complications of cirrhosis include ascites. Moni denies any recent abdominal distention or swelling. She denies abdominal pain. She denies fevers or chills. EGD in July did not reveal varices but evidence of portal gastropathy. Moni denies any diarrhea, melena or hematochezia. She denies constipation. She denies any radicular symptoms -- weakness or paresthesias. She has not noticed a change in her urine output but acknowledges that urine has been darker and more concentrated. Appetite is very good. She reports some recent swelling in her ankles but this has improved with feet elevation. CT scan showed the kidneys to be unobstructed. Baseline creatinine in August was 1.0 mg/dL. Creatinine was 1.97 mg/dL on admission. IV saline is infusing. Allergies Allergy/AdvReac Type Severity Reaction Status Date / Time No Known Allergies Allergy Unknown Verified 11/26/22 14:54 Home Medications Medication Instructions Recorded Confirmed Type Medical Marijuana Card 1 dose UD PRN Anxiety 08/22/22 11/26/22 History psyllium husk 3.4 gram/5.4 gram 1 tbsp PO BID 08/22/22 11/26/22 History oral powder (Metamucil) magnesium chloride 64 mg 64 mg PO DAILY #30 tabs 09/10/22 11/26/22 Rx (magnesium chloride) tablet,delayed release furosemide 40 mg tablet 20 mg PO QAM 30 days #15 tabs 10/10/22 11/26/22 Rx folic acid 1 mg tablet 1 mg PO QAM 30 days #30 tabs 10/16/22 11/26/22 Rx spironolactone 100 mg tablet 100 mg PO QAM 30 days #30 tabs 10/16/22 11/26/22 Rx acetaminophen 500 mg tablet 1,000 mg PO DIRECTED PRN Pain 11/26/22 11/26/22 History (Tylenol Extra Strength) fexofenadine 180 mg tablet 180 mg PO DAILY 11/26/22 11/26/22 History Patient History Medical History (Updated 11/26/22 @ 16:13 by Sterling Cunningham PA-C) Anxiety Cirrhosis of liver History of anesthesia reaction REMOTE HX HAD GAS ANESTHESIA WITH D&C/LUNG INFECTION WITHIN 24 HOURS AFTERWARDS ..TOLD TO AVOID GENERAL ANESTHESIA History of asthma CHILDHOOD History of COVID-19 HOME TEST + JUL 03 2022 - NO CURRENT S/ Low blood pressure CHRONIC ALL MY LIFE Vision decreased 11% OF VISION RIGHT EYE/HX ACCIDENT RELATED FAST MOTION MAKES ME SICK Surgical History History of D&C History of tooth extraction Family History Grandmother (Maternal) Breast cancer Mother Brain tumor due to accident Denies family history of Ovarian cancer Prostate cancer Diabetes Myocardial infarction Lung cancer Colorectal cancer Stroke Social History Smoking Status: Current every day smoker Tobacco Type: Cigarettes Age Started Using Tobacco: 13; packs per day: 1; Cigarettes Per Day: 3/4PPD ADVISED NPO; Second Hand Exposure: No; Do You Dip or Chew Tobacco: No; Tobacco Cessation Education Requested by Patient: No Hx Alcohol Use: No (since 2021) Hx Substance Use: Yes Last Used Substance: Days (ago) Substance Use Type Other:: MEDICAL MARIJUANA CARD /INSTRUCTED TO BRING Preferred Language: Setswana Communication Ability: Effective Visual Impairment: Limited Hearing Ability: Normal Director Of State Required: No Beliefs That Will Affect Care: None marital status: Current Living Situation: Spouse current occupational status: unemployed How many Children do You have: 1 Feels Safe at Home: Yes Safety Concerns: Feels Safe At This Time Childhood Exposure to Second-Hand Smoke: Yes Diet: low salt and regular caffeine: Yes Dental Care, Regularly: No Physical Activity Frequency: Does not Exercise Seatbelt Use: always Sunscreen Use: No Do you think of yourself as: straight/heterosexual Assistive Devices: Cane, Denture - Upper, Denture - Lower and Glasses Review of Systems Review of Systems: All systems reviewed & are unremarkable except as noted in HPI & below Physical Exam 2 Constitutional: well developed, + thin and + frail appearing; no acute distress Eyes: no scleral abnormality and no corneal abnormality ENMT: Mouth: no oral mucosal abnormality and oral mucous membranes not dry Neck: normal visual inspection and trachea midline Respiratory: normal respiratory effort Auscultation: lungs clear to auscultation bilaterally Cardiovascular: Rate/Rhythm: regular rate Heart Sounds: normal S1 and normal S2 Extremities: + pedal edema and + varicosities Gastrointestinal (Abdomen): Percussion/Palpation: abdomen soft and + ascites; abdomen nontender, no guarding and abdomen not rigid Musculoskeletal: Extremities: no cyanosis and no clubbing Skin: + turgor decreased; no jaundice Neurologic: Motor/Sensory: no tremor and no asterixis Psychiatric: Orientation: alert and oriented x 3 Results & Data Vital Signs (Past 12 Hours) Vital Signs Temp Pulse Pulse Resp BP BP BP 11/26/22 19:46 36.6 C 77 16 100/60 11/26/22 17:56 75 11/26/22 17:44 11/26/22 17:44 36.4 C L 72 20 107/56 L 11/26/22 17:44 11/26/22 17:40 36.4 C L 72 20 107/56 L 11/26/22 17:07 11/26/22 16:58 85 18 111/47 L 11/26/22 16:33 80 18 128/55 L 11/26/22 15:04 87 18 109/58 L 11/26/22 14:31 106/57 L 11/26/22 14:31 82 16 11/26/22 14:30 85 14 11/26/22 14:00 84 16 11/26/22 13:49 105/57 L 11/26/22 13:49 87 19 11/26/22 13:30 81 17 11/26/22 13:05 86 23 11/26/22 13:20 86 11/26/22 12:13 36.5 C 84 18 95/52 L Pulse Ox Pulse Ox O2 Del Method O2 Del Method O2 Flow Rate 11/26/22 19:46 97 Room Air 11/26/22 17:56 11/26/22 17:44 Room Air 11/26/22 17:44 100 Room Air 11/26/22 17:44 100 Room Air 0 11/26/22 17:40 100 Room Air 11/26/22 17:07 Room Air 11/26/22 16:58 94 Room Air 11/26/22 16:33 98 Room Air 11/26/22 15:04 99 Room Air 11/26/22 14:31 11/26/22 14:31 99 Room Air 11/26/22 14:30 98 Room Air 11/26/22 14:00 99 Room Air 11/26/22 13:49 11/26/22 13:49 98 Room Air 11/26/22 13:30 98 Room Air 11/26/22 13:05 95 Room Air 11/26/22 13:20 11/26/22 12:13 98 Room Air Laboratory Results Laboratory Results - last 24 hr 11/26/22 11/26/22 11/26/22 12:18 12:18 12:23 WBC 6.46 RBC 3.80 L Hgb 13.1 Hct 38.0 MCV 100.0 MCH 34.5 H MCHC 34.5 RDW Std Deviation 50.6 H RDW Coeff of Justina 13.8 Plt Count 121 L MPV 9.8 Immature Gran % (Auto) 0.3 Neut % (Auto) 57.6 Lymph % (Auto) 29.7 [place] % (Auto) 9.9 Eos % (Auto) 1.9 Baso % (Auto) 0.6 Neut # (Auto) 3.72 Lymph # (Auto) 1.92 [place] # (Auto) 0.64 H Eos # (Auto) 0.12 Baso # (Auto) 0.04 Immature Gran # (Auto) 0.02 PT 13.2 H INR 1.2 H APTT 28.8 PTT Ratio 1.0 Sodium 133 L Potassium 4.8 Chloride 103 Carbon Dioxide 26 Anion Gap 4 BUN 56 H Creatinine 1.97 H Est Cr Clr Drug Dosing Not Reportable Est GFR ( Amer) 30.8 Est GFR (Non-Af Amer) 26.6 BUN/Creatinine Ratio 28.4 H Glucose 100 H Lactate Calcium 10.3 Magnesium 2.1 Total Bilirubin 1.1 H AST 48 H ALT 37 Alkaline Phosphatase 85 Total Protein 7.8 Albumin 3.6 Globulin 4.2 H Albumin/Globulin Ratio 0.9 Lipase 226 H Urine Color Urine Appearance Urine pH Ur Specific [place] Urine Protein Urine Glucose (UA) Urine Ketones Urine Blood Urine Nitrite Urine Bilirubin Urine Urobilinogen Ur Leukocyte Esterase SARS-CoV-2, RNA, NAAT 11/26/22 11/26/22 11/26/22 13:20 14:07 15:46 WBC RBC Hgb Hct MCV MCH MCHC RDW Std Deviation RDW Coeff of Justina Plt Count MPV Immature Gran % (Auto) Neut % (Auto) Lymph % (Auto) [place] % (Auto) Eos % (Auto) Baso % (Auto) Neut # (Auto) Lymph # (Auto) [place] # (Auto) Eos # (Auto) Baso # (Auto) Immature Gran # (Auto) PT INR APTT PTT Ratio Sodium Potassium Chloride Carbon Dioxide Anion Gap BUN Creatinine Est Cr Clr Drug Dosing Est GFR ( Amer) Est GFR (Non-Af Amer) BUN/Creatinine Ratio Glucose Lactate 1.3 Calcium Magnesium Total Bilirubin AST ALT Alkaline Phosphatase Total Protein Albumin Globulin Albumin/Globulin Ratio Lipase Urine Color Yellow Urine Appearance Clear Urine pH 6.0 Ur Specific [place] 1.012 Urine Protein Negative Urine Glucose (UA) Negative Urine Ketones Negative Urine Blood Negative Urine Nitrite Negative Urine Bilirubin Negative Urine Urobilinogen Negative Ur Leukocyte Esterase Negative SARS-CoV-2, RNA, NAAT NEGATIVE Diagnostic Findings CT SCAN OF THE ABDOMEN AND PELVIS WITHOUT IV CONTRAST; CT SCAN OF THE LUMBAR SPINE WITHOUT IV CONTRAST FINDINGS: Lung bases: The heart is normal in size and without pericardial effusion. Emphysematous change is suspected. There is bibasilar scarring/atelectasis. No airspace consolidation or pleural effusion is identified. There is a small hiatal hernia. Esophageal varices are noted. Liver: The unenhanced liver is cirrhotic in morphology and heterogeneous in attenuation. There is hypertrophy of the left lobe and nodularity of the hepatic surface contour. There is recanalization of the periumbilical vein. There is no intrahepatic biliary ductal dilatation. Gallbladder: The gallbladder is distended and contains calcified gallstones. Mild gallbladder wall thickening is nonspecific and likely related to adjacent hepatocellular disease. Spleen: Normal in size and attenuation. Pancreas: Calcifications in the pancreatic head/uncinate are nonspecific and could be seen with chronic pancreatitis. The pancreas appears edematous and there is infiltration around the pancreatic head and body no peripancreatic fluid collection is seen. Adrenal glands: Unremarkable. Kidneys: The unenhanced kidneys are normal in size and without hydronephrosis. There is a 3 mm nonobstructing right renal calculus. No left renal calculi are identified and there is no ureteral stone. There is no evidence of contour deforming renal mass lesion. Abdominal vasculature: The abdominal aorta is normal in course and caliber noting moderate to advanced atherosclerotic calcification. Bowel: There is mild to moderate sigmoid diverticulosis without CT evidence of acute diverticulitis. Moderate fecal retention is noted throughout the colon. There is no bowel obstruction. A duodenal diverticulum is incidentally noted. The appendix is well-visualized and normal. Peritoneum: There is no intraperitoneal free air or abdominal ascites. There is a fat-containing umbilical hernia. There is nonspecific infiltration along the mesentery. Lymphadenopathy: None. Pelvic viscera: The bladder, uterus, and adnexa are normal as visualized. Skeletal structures: The skeletal structures are osteopenic. See below for dedicated discussion of the lumbar spine. The bony pelvis and proximal femora appear intact. No lytic or blastic lesions are seen. LUMBAR SPINE: Vertebral body height and alignment are maintained throughout the lumbar spine. The transverse and spinous processes are intact. Tiny anterior and lateral marginal osteophytes are seen throughout. There is no spondylolysis. The disc spaces are preserved. There is no CT evidence of large disc herniation or central canal stenosis. There are left lateral disc bulges at L3-L4 and L4-L5. Lateral disc bulge is seen bilaterally at L5-S1. The paraspinous soft tissues are within normal limits. IMPRESSION: 1. The liver is cirrhotic in morphology and heterogeneous in attenuation. 2. Esophageal varices and recanalization of the periumbilical vein indicate portal hypertension. 3. No abdominal ascites is seen. 4. There is nonspecific infiltration around the pancreatic head and body. Correlate with clinical and laboratory findings for evidence of acute pancreatitis. 5. There is nonspecific infiltration identified throughout the central mesentery around the mesenteric vessels. The vessels cannot be assessed without IV contrast. If there is clinical concern for mesenteric vascular compromise a contrast enhanced CT should be obtained. 6. Cholelithiasis within a distended gallbladder. Mild gallbladder wall thickening is nonspecific and likely related to adjacent hepatocellular disease. Correlate with clinical and laboratory findings. If there is clinical concern for acute cholecystitis a right upper quadrant ultrasound would be appropriate. 7. Right-sided nephrolithiasis. 8. No acute bony abnormality is seen involving the lumbar spine. 9. Sigmoid diverticulosis without CT evidence of acute diverticulitis. 10. Additional findings as above. PG Care Time/CCT Total # of Minutes Spent Total Time Spent with Patient: Total time spent is greater than 50% in coordination of care (as documented) at patient's floor/unit and/or counseling patient: Coding Level of Care Code 21402 IN/OBS CONSULT LVL 4,60M Diagnoses RAVI (acute kidney injury) N17.9 Right low back pain M54.50 Cirrhosis, alcoholic K70.30
[2022-11-26] MEDS: HEPARIN SOD 5,000 UNIT/0.5 ML VIAL SQ SCH (20:30)
[2022-11-26] MEDS ORDERED: SODIUM CHLORIDE 0.9% 1000ML 500 ML IV ONE (22:56)
[2022-11-27] MEDS: SODIUM CHLORIDE 0.9% 1000ML 1,000 ML IV SCH (04:08)
[2022-11-27] MEDS ORDERED: Nursing to Pharmacy Communication SCH (07:00)
[2022-11-27] MEDS: HEPARIN SOD 5,000 UNIT/0.5 ML VIAL SQ SCH ×2 (07:42→20:21)
[2022-11-27] MEDS: FOLIC ACID 1 MG TAB PO SCH (07:42)
[2022-11-27] MEDS: MoRPHine SULFATE 2 MG/ML CARP IV PRN (07:42)
[2022-11-27 07:57] LABS: Basophils # (auto) 0.02 K/uL (0-0.2); Basophils % (auto) 0.4 %; Eosinophils # (auto) 0.15 K/uL (0-0.50); Eosinophils % (auto) 2.7 %; Hematocrit (blood only) 32.6 % (37.0-47.0); Hemoglobin 11.6 g/dl (12.0-16.0); Immature Granulocytes # (auto) 0.02 K/uL (0.01-0.20); Immature Granulocytes % (auto) 0.4 %; Lymphocytes # (auto) 2.49 K/uL (1.2-3.4); Lymphocytes % (auto) 44.1 %; Mean Corpuscular Hgb Conc 35.6 g/dL (32.0-36.0); Mean Corpuscular Volume 98.5 fL (80.0-100.0); Monocytes % (auto) 10.6 %; Neutrophils # (auto) 2.37 K/uL (1.40-6.50); Neutrophils % (auto) 41.8 %; Platelet Count 99 K/uL (130-400); RDW Standard Deviation 50.9 fL (36.4-46.3); Red Blood Count 3.31 M/uL (4.20-5.40); White Blood Count 5.65 K/ul (4.8-10.8)
[2022-11-27 08:16] LABS: Albumin Globulin Ratio 0.8 (0.9-2); Albumin Level 2.7 gm/dl (3.4-5.0); BUN Creatinine Ratio 28.1 (10-20); Calcium 8.7 mg/dl (8.6-10.3); Creatinine Clr Calc Pharmacy 30.2 ml/min; Est GFR (African American) 41.8 ml/min; Est GFR (Non-African American) 36.1 ml/min; Globulin 3.4 gm/dl (2.5-4.0); Magnesium 1.6 mg/dl (1.7-2.4); Potassium 5.5 mmol/L (3.5-5.1); Total Protein 6.1 gm/dl (6.0-8.3)
[2022-11-27] MEDS: NICOTINE 21 MG/24 HR TDSY TD SCH (08:33)
[2022-11-27] MEDS: methylPREDNISolone 40 MG in SYRINGE 0 ML IV SCH ×3 (09:18→20:20)
[2022-11-27] MEDS: MAGNESIUM OXIDE 400 MG TAB PO SCH ×2 (09:18→20:21)
--- NOTE | 2022-11-27 10:00 | Nephrology Progress Note ---
Date of Service November 27, 2022 Assessment & Plan (1) RAVI (acute kidney injury): Plan: Non-oliguric. Volume status acceptable. Urine is bland and acellular. Kidneys are unobstructed on CT. Baseline creatinine in August 1.0 mg/dL. Creatinine improved to 1.5 mg/dL ove rnight. Hold NSS infusion. Low Na and low K diet. Check urine sodium. Provide HCO3 replacement. Repeat labs this afternoon. Document strict I/O's. Repeat metabolic profile this afternoon. Medications appropriately dosed for kidney function. (2) Cirrhosis, alcoholic: Plan: MELD 18. Complications include ascites. Clinical presentation atypical for HRS but I certainly cannot exclude at this time. IV saline provided overnight. Kidney function improving. Urine sodium to be checked today. (3) Hyperkalemia: Plan: Low potassium diet. Oral NaHCO3 replacement. Encourage PO fluids. Repeat metabolic profile this afternoon. (4) Right low back pain: Admission and Anticipated Discharge Date Admission Date: November 26, 2022 Subjective No acute events overnight. Back pain persists. Moni reports some improvement. She reports that it is easier to stand but turning or laying down cause pain predominately in the left paraspinal area along the lumbar spine. She was out of bed to the bedside commode. No diarrhea. No nausea. Appetite is very good. Moni denies abdominal distention or discomfort. No fevers or chills. No edema or keyonna dence of fluid retention otherwise. Review of Systems Review of Systems: All systems reviewed & are unremarkable except as noted in HPI & below Physical Exam Constitutional: well developed and + thin; no acute distress Eyes: no scleral abnormality and no corneal abnormality ENMT: Mouth: no oral mucosal abnormality and oral mucous membranes not dry Neck: normal visual inspection and trachea midline Respiratory: normal respiratory effort Auscultation: lungs clear to auscul tation bilaterally Cardiovascular: Rate/Rhythm: regular rate Heart Sounds: normal S1 and normal S2 Extremities: + varicosities; no pedal edema Gastrointestinal (Abdomen): Percussion/Palpation: abdomen soft and + ascites; abdomen nontender, no guarding and abdomen not rigid Musculoskeletal: Extremities: no cyanosis and no clubbing Skin: + turgor decreased; no jaundice Neurologic: Motor/Sensory: no tremor and no asterixis Psychiatric: Orientation: alert and oriented x 3 Results & Data Vital Signs (Past 12 Hours) Vital Signs Temp Pulse Pulse Resp BP BP Pulse Ox 11/27/22 07:32 11/27/22 07:32 36.5 C 78 20 92/53 L 100/52 L 95 11/27/22 06:03 82 11/27/22 03:13 36.7 C 74 14 96/60 L 95 11/26/22 23:10 74 11/26/22 22:49 96/51 L 11/26/22 22:32 36.6 C 79 14 83/47 L 96 O2 Del Method 11/27/22 07:32 Room Air 11/27/22 07:32 Room Air 11/27/22 06:03 11/27/22 03:13 Room Air 11/26/22 23:10 11/26/22 22:49 11/26/22 22:32 Room Air Laboratory Results Laboratory Results - last 24 hr 11/26/22 11/26/22 11/26/22 12:18 12:18 12:23 WBC 6.46 RBC 3.80 L Hgb 13.1 Hct 38.0 MCV 100.0 MCH 34.5 H MCHC 34.5 RDW Std Deviation 50.6 H RDW Coeff of [place] 13.8 Plt Count 121 L MPV 9.8 Immature Gran % (Auto) 0.3 Neut % (Auto) 57.6 Lymph % (Auto) 29.7 [place] % (Auto) 9.9 Eos % (Auto) 1.9 Baso % (Auto) 0.6 Neut # (Auto) 3.72 Lymph # (Auto) 1.92 [place] # (Auto) 0.64 H Eos # (Auto) 0.12 Baso # (Auto) 0.04 Immature Gran # (Auto) 0.02 PT 13.2 H INR 1.2 H APTT 28.8 PTT Ratio 1.0 Sodium 133 L Potassium 4.8 Chloride 103 Carbon Dioxide 26 Anion Gap 4 BUN 56 H Creatinine 1.97 H Est Cr Clr Drug Dosing Not Reportable Est GFR ( Amer) 30.8 Est GFR (Non-Af Amer) 26.6 BUN/Creatinine Ratio 28.4 H Glucose 100 H Lactate Calcium 10.3 Magnesium 2.1 Total Bilirubin 1.1 H AST 48 H ALT 37 Alkaline Phosphatase 85 Total Protein 7.8 Albumin 3.6 Globulin 4.2 H Albumin/Globulin Ratio 0.9 Lipase 226 H Urine Color Urine Appearance Urine pH Ur Specific [place] Urine Protein Urine Glucose (UA) Urine Ketones Urine Blood Urine Nitrite Urine Bilirubin Urine Urobilinogen Ur Leukocyte Esterase SARS-CoV-2, RNA, NAAT 11/26/22 11/26/22 11/26/22 13:20 14:07 15:46 WBC RBC Hgb Hct MCV MCH MCHC RDW Std Deviation RDW Coeff of Justina Plt Count MPV Immature Gran % (Auto) Neut % (Auto) Lymph % (Auto) [place] % (Auto) Eos % (Auto) Baso % (Auto) Neut # (Auto) Lymph # (Auto) [place] # (Auto) Eos # (Auto) Baso # (Auto) Immature Gran # (Auto) PT INR APTT PTT Ratio Sodium Potassium Chloride Carbon Dioxide Anion Gap BUN Creatinine Est Cr Clr Drug Dosing Est GFR ( Amer) Est GFR (Non-Af Amer) BUN/Creatinine Ratio Glucose Lactate 1.3 Calcium Magnesium Total Bilirubin AST ALT Alkaline Phosphatase Total Protein Albumin Globulin Albumin/Globulin Ratio Lipase Urine Color Yellow Urine Appearance Clear Urine pH 6.0 Ur Specific [place] 1.012 Urine Protein Negative Urine Glucose (UA) Negative Urine Ketones Negative Urine Blood Negative Urine Nitrite Negative Urine Bilirubin Negative Urine Urobilinogen Negative Ur Leukocyte Esterase Negative SARS-CoV-2, RNA, NAAT NEGATIVE 11/27/22 11/27/22 06:42 06:42 WBC 5.65 RBC 3.31 L Hgb 11.6 L Hct 32.6 L MCV 98.5 MCH 35.0 H MCHC 35.6 RDW Std Deviation 50.9 H RDW Coeff of [place]ina 14.0 Plt Count 99 L MPV 10.0 Immature Gran % (Auto) 0.4 Neut % (Auto) 41.8 Lymph % (Auto) 44.1 [place] % (Auto) 10.6 Eos % (Auto) 2.7 Baso % (Auto) 0.4 Neut # (Auto) 2.37 Lymph # (Auto) 2.49 [place] # (Auto) 0.60 H Eos # (Auto) 0.15 Baso # (Auto) 0.02 Immature Gran # (Auto) 0.02 PT INR APTT PTT Ratio Sodium 136 Potassium 5.5 H Chloride 112 H Carbon Dioxide 20 L Anion Gap 4 BUN 43 H Creatinine 1.53 H D Est Cr Clr Drug Dosing 30.2 Est GFR ( Amer) 41.8 Est GFR (Non-Af Amer) 36.1 BUN/Creatinine Ratio 28.1 H Glucose 81 Lactate Calcium 8.7 Magnesium 1.6 L Total Bilirubin 1.0 AST 41 H ALT 30 Alkaline Phosphatase 62 Total Protein 6.1 D Albumin 2.7 L Globulin 3.4 Albumin/Globulin Ratio 0.8 L Lipase 98 H Urine Color Urine Appearance Urine pH Ur Specific [place] Urine Protein Urine Glucose (UA) Urine Ketones Urine Blood Urine Nitrite Urine Bilirubin Urine Urobilinogen Ur Leukocyte Esterase SARS-CoV-2, RNA, NAAT PG Care Time/CCT Total # of Minutes Spent Total Time Spent with Patient: Total time spent is greater than 50% in coordination of care (as documented) at patient's floor/unit and/or counseling patient: Coding Level of Care Code 03514 SUB INP/OBS CARE 3/50MIN Diagnoses RAVI (acute kidney injury) N17.9 Cirrhosis, alcoholic K70.30 Hyperkalemia E87.5 Right low back pain M54.50
[2022-11-27] MEDS: SODIUM BICARBONATE 650 MG TAB PO SCH ×2 (10:48→17:21)
[2022-11-27] MEDS: FEXOFENADINE HCL 180 MG TAB PO SCH (10:49)
--- NOTE | 2022-11-27 11:44 | Hospitalist Progress Note ---
Date of Service November 27, 2022 Assessment & Plan (1) Right low back pain: Plan: Improved. She is now on parenteral steroid therapy. Continue pain control measures. (2) Pancreatitis: Plan: Ruled out. She has no current symptoms of pancreatitis. Abnormal findings on CT scan are probably chronic. (3) Cirrhosis, alcoholic: Plan: Chronic. Alcohol use disorder in remission. Holding home furosemide and spironolactone currently in setting of RAVI. Supportive care (4) RAVI (acute kidney injury): Plan: Improving with IV fluids. Creatinine down to 1.5. Monitor intake and output. Serial labs (5) Nicotine abuse: Plan: 1ppd. Continue nicotine patch 21mg (6) Thrombocytopenia: Plan: Chronic, at baseline. (7) Anxiety: Plan: Stable. Not on medication (8) Medical marijuana use: Plan: Reports occasional use as outpatient. Plan Hopefully home tomorrow, November 28 Admission and Anticipated Discharge Date Admission Date: November 26, 2022 Subjective Alert and oriented. No new problems. She is now on parenteral steroid therapy. Magnesium replacement ordered. Creatinine improving with IV fluids. Hopefully she will be able to go home tomorrow, November 28 Review of Systems Review of Systems: Constitutional-no fever or chills ENT-no blurred vision, no double vision, no epistaxis, no sore throat Respiratory-no cough, no wheezing, no shortness of breath Cardiac-no palpitations, no chest pain, no syncope GI-no nausea, vomiting, diarrhea, melena, hematochezia -no urinary retention, no urinary incontinence, no dysuria, no hematuria Musculoskeletal-lumbar discomfort is improving Skin-no bruising, no rashes, no pruritus Neuro-no isolated weakness, no paresthesia Psych-no depression, no anxiety Physical Exam Physical Exam: General-alert and oriented x3, no fevers, no chills HEENT-head atraumatic and normocephalic, pupils equal and reactive to light, extraocular muscles intact Neck-no lymphadenopathy or thyromegaly, trachea midline Chest-clear to auscultation percussion. No rales wheezing or rhonchi Cardiac-regular rate and rhythm, normal S1 and S2 Abdomen-normal bowel sounds, nontender, no hepatosplenomegaly Extremities-no cyanosis, clubbing, or edema Neuro-cranial nerves II through XII intact, motor and sensory function within normal limits, strength symmetrical , no focal deficits Psych-normal affect, normal mood Results & Data Results & Data Vital Signs (Past 12 Hours) Vital Signs Temp Pulse Pulse Resp BP BP Pulse Ox 11/27/22 07:32 11/27/22 07:32 36.5 C 78 20 92/53 L 100/52 L 95 11/27/22 06:03 82 11/27/22 03:13 36.7 C 74 14 96/60 L 95 O2 Del Method 11/27/22 07:32 Room Air 11/27/22 07:32 Room Air 11/27/22 06:03 11/27/22 03:13 Room Air Laboratory Results 11/27/22 06:42 11/27/22 06:42 PG Care Time/CCT Total # of Minutes Spent Total Time Spent with Patient: Total time spent is greater than 50% in coordination of care (as documented) at patient's floor/unit and/or counseling patient: Coding Level of Care Code 83060 SUB INP/OBS CARE 3/50MIN Diagnoses Right low back pain M54.50 Pancreatitis K85.90 Cirrhosis, alcoholic K70.30 RAVI (acute kidney injury) N17.9 Nicotine abuse Z72.0 Thrombocytopenia D69.6 Anxiety F41.9 Medical marijuana use Z79.899
[2022-11-27 15:18] LABS: BUN Creatinine Ratio 27.2 (10-20); Creatinine Clr Calc Pharmacy 28.5 ml/min; Est GFR (Non-African American) 33.7 ml/min; Potassium 5.1 mmol/L (3.5-5.1)
[2022-11-27] MEDS ORDERED: LIDOCAINE 5% 1 PATCH TD SCH (21:00)
[2022-11-28] MEDS: methylPREDNISolone 40 MG in SYRINGE 0 ML IV SCH ×2 (03:05→09:06)
[2022-11-28 08:45] LABS: Basophils # (auto) 0.01 K/uL (0-0.2); Basophils % (auto) 0.1 %; Hematocrit (blood only) 34.9 % (37.0-47.0); Hemoglobin 12.1 g/dl (12.0-16.0); Immature Granulocytes # (auto) 0.07 K/uL (0.01-0.20); Immature Granulocytes % (auto) 0.8 %; Lymphocytes # (auto) 1.06 K/uL (1.2-3.4); Lymphocytes % (auto) 12.2 %; Mean Corpuscular Hemoglobin 34.3 pg (25.0-34.0); Mean Corpuscular Hgb Conc 34.7 g/dL (32.0-36.0); Mean Corpuscular Volume 98.9 fL (80.0-100.0); Mean Platelet Volume 10.3 fL (9.4-12.4); Monocytes # (auto) 0.13 K/uL (0.11-0.59); Monocytes % (auto) 1.5 %; Neutrophils # (auto) 7.45 K/uL (1.40-6.50); Neutrophils % (auto) 85.4 %; Platelet Count 92 K/uL (130-400); RDW Coefficient of Variation 13.5 % (11.5-14.5); Red Blood Count 3.53 M/uL (4.20-5.40); White Blood Count 8.72 K/ul (4.8-10.8)
[2022-11-28 08:58] LABS: Calcium 9.5 mg/dl (8.6-10.3); Creatinine Clr Calc Pharmacy 39.1 ml/min; Est GFR (African American) 57.2 ml/min; Est GFR (Non-African American) 49.4 ml/min; Potassium 5.1 mmol/L (3.5-5.1)
[2022-11-28] MEDS: SODIUM BICARBONATE 650 MG TAB PO SCH (09:06)
[2022-11-28] MEDS: MAGNESIUM OXIDE 400 MG TAB PO SCH (09:06)
[2022-11-28] MEDS: FEXOFENADINE HCL 180 MG TAB PO SCH (09:06)
[2022-11-28] MEDS: FOLIC ACID 1 MG TAB PO SCH (09:06)
[2022-11-28] MEDS: HEPARIN SOD 5,000 UNIT/0.5 ML VIAL SQ SCH (09:06)
[2022-11-28] MEDS: NICOTINE 21 MG/24 HR TDSY TD SCH (09:13)
--- NOTE | 2022-11-28 09:29 | Nephrology Progress Note ---
Date of Service November 28, 2022 Assessment & Plan (1) RAVI (acute kidney injury): Plan: Creatinine has normalized. Volume status euvolemic. BP low but acceptable. Clinical presentation consistent with prerenal RAVI. Etiology not entirely clear. Given mild associated hyperkalemia, I would suggest holding spironolactone pending outpatient follow up. Suggest repeat metabolic profile within 1 week and follow up in the nephrology clinic within 2 weeks of hospital discharge. No additional recommendations at this time. Moni was advised to avoid NSAIDS. Please call with questions or concerns. (2) Cirrhosis, alcoholic: Plan: MELD 18. Complications include ascites. RAVI non-oliguric + Urine sodium not consistent with HRS. Creatinine improved with IVF. Hold spironolactone for now pending outpatient follow up. (3) Hyperkalemia: Plan: Low potassium diet. Oral NaHCO3 replacement may be stopped at discharge. Repeat metabolic profile next week. Encourage PO fluids. (4) Right low back pain: Admission and Anticipated Discharge Date Admission Date: November 26, 2022 Subjective No acute events overnight. Moni reports some persistent dull achiness in her back but overall significant improvement. She can feel the muscles in her lower back start to spasm when she starts to make certain motions while standing. However, she does not see this from preventing her from being able to care for herself at home. Moni hopes to be discharged home later today. She denies fluid retention or edema. Appetite is good. Moni denies any GI symptoms except for some slight constipation. Review of Systems Review of Systems: All systems reviewed & are unremarkable except as noted in HPI & below Physical Exam Constitutional: well developed, + thin and + frail appearing; no acute distress Eyes: no scleral abnormality and no corneal abnormality ENMT: Mouth: no oral mucosal abnormality and oral mucous membranes not dry Neck: normal visual inspection and trachea midline Respiratory: normal respiratory effort Auscultation: lungs clear to auscultation bilaterally Cardiovascular: Rate/Rhythm: regular rate Heart Sounds: normal S1 and normal S2 Extremities: + varicosities; no pedal edema Gastrointestinal (Abdomen): Percussion/Palpation: abdomen soft and + ascites; abdomen nontender, no guarding and abdomen not rigid Musculoskeletal: Extremities: no cyanosis and no clubbing Skin: + turgor decreased; no jaundice Neurologic: Motor/Sensory: no tremor and no asterixis Psychiatric: Orientation: alert and oriented x 3 Results & Data Vital Signs (Past 12 Hours) Vital Signs Temp Pulse Pulse Resp BP Pulse Ox O2 Del Method 11/28/22 08:01 36.4 C L 76 18 96/51 L 95 Room Air 11/28/22 05:03 36.5 C 77 20 103/56 L 96 Room Air 11/27/22 23:48 36.7 C 83 20 104/61 97 Room Air 11/27/22 23:08 82 11/27/22 22:35 Room Air Laboratory Results Laboratory Results - last 24 hr 11/27/22 11/27/22 11/28/22 10:15 14:46 07:29 WBC 8.72 RBC 3.53 L Hgb 12.1 Hct 34.9 L MCV 98.9 MCH 34.3 H MCHC 34.7 RDW Std Deviation 49.0 H RDW Coeff of Justina 13.5 Plt Count 92 L MPV 10.3 Immature Gran % (Auto) 0.8 Neut % (Auto) 85.4 Lymph % (Auto) 12.2 Drew % (Auto) 1.5 Eos % (Auto) 0.0 Baso % (Auto) 0.1 Neut # (Auto) 7.45 H Lymph # (Auto) 1.06 L Drew # (Auto) 0.13 Eos # (Auto) 0.00 Baso # (Auto) 0.01 Immature Gran # (Auto) 0.07 Sodium 134 L Potassium 5.1 Chloride 110 H Carbon Dioxide 22 Anion Gap 2 L BUN 44 H Creatinine 1.62 H Est Cr Clr Drug Dosing 28.5 Est GFR ( Amer) 39.0 Est GFR (Non-Af Amer) 33.7 BUN/Creatinine Ratio 27.2 H Glucose 137 H Calcium 9.0 Ur Random Sodium 75 11/28/22 07:29 WBC RBC Hgb Hct MCV MCH MCHC RDW Std Deviation RDW Coeff of Justina Plt Count MPV Immature Gran % (Auto) Neut % (Auto) Lymph % (Auto) Drew % (Auto) Eos % (Auto) Baso % (Auto) Neut # (Auto) Lymph # (Auto) Drew # (Auto) Eos # (Auto) Baso # (Auto) Immature Gran # (Auto) Sodium 134 L Potassium 5.1 Chloride 110 H Carbon Dioxide 20 L Anion Gap 4 BUN 46 H Creatinine 1.18 D Est Cr Clr Drug Dosing 39.1 Est GFR ( Amer) 57.2 Est GFR (Non-Af Amer) 49.4 BUN/Creatinine Ratio 39.0 H Glucose 132 H Calcium 9.5 Ur Random Sodium PG Care Time/CCT Total # of Minutes Spent Total Time Spent with Patient: Total time spent is greater than 50% in coordination of care (as documented) at patient's floor/unit and/or counseling patient: Coding Level of Care Code 74606 SUB INP/OBS CARE 3/50MIN Diagnoses RAVI (acute kidney injury) N17.9 Cirrhosis, alcoholic K70.30 Hyperkalemia E87.5 Right low back pain M54.50
--- NOTE | 2022-11-28 12:16 | Discharge Summary ---
Date of Service November 28, 2022 Admission HPI Per Admitting Provider 62-year-old female past medical history of alcoholic cirrhosis, thrombocytopenia who presents with right side/lower back pain since lifting 20-25lbs boxes 10 days ago with exacerbation to severe intensity since 11/22/22. She was seen by PCP today who sent her to the ED. She has not had appendectomy or cholecystectomy. She had a normal HIDA scan 09/2022 for an equivocal gallbladder on CT abd in 08/2022. Denies having family history of gallbladder disease. He states she took her home medications this morning. ED course: Morphine 2 mg IV x2, zofran. Principal Diagnosis Low back pain secondary to lumbosacral strain, acute kidney injury, hypomagnesemia Discharge Exam General-alert and oriented x3, no fevers, no chills HEENT-head atraumatic and normocephalic, pupils equal and reactive to light, extraocular muscles intact Neck-no lymphadenopathy or thyromegaly, trachea midline Chest-clear to auscultation percussion. No rales wheezing or rhonchi Cardiac-regular rate and rhythm, normal S1 and S2 Abdomen-normal bowel sounds, nontender, no hepatosplenomegaly Extremities-no cyanosis, clubbing, or edema Neuro-cranial nerves II through XII intact, motor and sensory function within normal limits, strength symmetrical , no focal deficits Psych-normal affect, normal mood Discharge Data Allergies Allergy/AdvReac Type Severity Reaction Status Date / Time aspartame Allergy Verified 11/27/22 15:23 sucralose Allergy Verified 11/27/22 15:23 [From Splenda (sucralose)] Consultations 11/26/22 14:10 ED Decision to Admit Stat 11/26/22 16:13 Consult Physician Routine Ordered Studies 11/26/22 13:04 CT abd pelvis wo con Stat CT lumbar spine wo con Stat 11/26/22 15:15 US gallbladder Urgent Hospital Course (1) Right low back pain: Improved. Treated with parenteral steroids while hospitalized. She will be discharged on a prednisone tapering dose. (2) Pancreatitis: Ruled out. She has no current symptoms of pancreatitis. Abnormal findings on CT scan are probably chronic. (3) Cirrhosis, alcoholic: Chronic. Alcohol use disorder in remission. Holding home furosemide and spironolactone currently in setting of RAVI. Will resume at discharge. Supportive care (4) RAVI (acute kidney injury): Resolved with IV fluids. Creatinine down to 1.1. Monitor intake and output. Serial labs (5) Nicotine abuse: 1ppd. Continue nicotine patch 21mg (6) Thrombocytopenia: Chronic, at baseline. (7) Anxiety: Stable. Not on medication (8) Medical marijuana use: Reports occasional use as outpatient. Plan Home today, November 28 Total Time Total Time Spent Total Time Spent (In Minutes): 40-minute Discharge Plan Discharge Items Patient Disposition: Home - Self-Care Reason For Visit: INTRACTABLE RIGHT LOW BACK PAIN Discharge Diagnosis: Lumbosacral sprain with low back pain, acute kidney injury, hypomagnesemia Condition on Discharge: Good Activity: Resume your previous activity Non-emergency contact: Primary Care Provider Call non-emergency contact if: your symptoms worsen Follow-up/Referrals: Jethro Mills DO [Primary Care Provider] - 12/04/22 11:30 am Diet: Regular Addtl Attending Provider Instructions: Take prednisone in a tapering dose fashion as directed Pending Studies at Discharge: No Stand-Alone Forms: My [facility] [employer], Smoking Cessation Medications and DC Order Prescriptions: New prednisone 10 mg tablet See Rx Instructions .ROUTE .COMPLEX Qty: 12 0RF Rx Instructions: 10 mg orally 3 times a day for 2 days, then 10 mg twice a day for 2 days, then 10 mg once a day for 2 days, then stop Continued magnesium chloride 64 mg tablet,delayed release (DR/EC) 64 mg PO DAILY Qty: 30 3RF furosemide 40 mg tablet 20 mg PO QAM 30 Days Qty: 15 5RF folic acid 1 mg tablet 1 mg PO QAM 30 Days Qty: 30 5RF spironolactone 100 mg tablet 100 mg PO QAM 30 Days Qty: 30 5RF Metamucil 3.4 gram/5.4 gram Powder 1 tbsp PO BID Rx Instructions: mix into at least 8 oz of water or juice before administering Medical Marijuana Card 1 dose UD PRN (Reason: Anxiety) fexofenadine [Venessa] 180 mg Tablet 180 mg PO DAILY acetaminophen [Tylenol Extra Strength] 500 mg Tablet 1,000 mg PO DIRECTED PRN (Reason: Pain) Discharge Orders: Discharge Order (Routine); Ordered 11/28/22 Ordered By: Curtis Leonard Admission Data Admit Date/Time: 11/26/22 15:13 Attending Provider: Curtis Leonard Admit Provider: Sravan Bermudez Primary Care Provider: Jethro Mills Other Providers: Juan Daniel Amaor ; Blayne Cuenca Coding Level of Care Code 93149 INP/OBS DISCH >30 MIN Diagnoses Right low back pain M54.50 Pancreatitis K85.90 Cirrhosis, alcoholic K70.30 RAVI (acute kidney injury) N17.9 Nicotine abuse Z72.0 Thrombocytopenia D69.6 Anxiety F41.9 Medical marijuana use Z79.899
== END 2022-11-28 13:08 | disposition home or self-care (01) ==
LOC: ED 12:10 → 2N 12:10 → SUATTDRO 15:13 → 2N 17:07

== ENCOUNTER 2024-07-16 12:49 | Observation (INO) ==
[2024-07-16 14:36] LABS: Basophils # (auto) 0.01 K/uL (0.00-0.20); Basophils % (auto) 0.2 %; Eosinophils # (auto) 0.01 K/uL (0.00-0.50); Eosinophils % (auto) 0.2 %; Hematocrit (blood only) 44.6 % (37.0-47.0); Hemoglobin 15.6 g/dl (12.0-16.0); Immature Granulocytes # (auto) 0.01 K/uL (0.01-0.20); Immature Granulocytes % (auto) 0.2 %; Lymphocytes # (auto) 0.59 K/uL (1.20-3.40); Lymphocytes % (auto) 14.5 %; Mean Corpuscular Hemoglobin 32.4 pg (25.0-34.0); Mean Corpuscular Volume 92.7 fL (80.0-100.0); Mean Platelet Volume 10.5 fL (9.4-12.4); Monocytes # (auto) 0.37 K/uL (0.11-0.59); Monocytes % (auto) 9.1 %; Neutrophils # (auto) 3.09 K/uL (1.40-6.50); Neutrophils % (auto) 75.8 %; Platelet Count 70 K/uL (130-400); RDW Standard Deviation 44.5 fL (36.4-46.3); Red Blood Count 4.81 M/uL (4.20-5.40); White Blood Count 4.08 K/ul (4.8-10.8)
[2024-07-16 14:56] LABS: Albumin Globulin Ratio 1.2 (0.9-2); Albumin Level 4.3 gm/dl (3.4-5.0); BUN Creatinine Ratio 19.5 (10-20); Calcium 9.7 mg/dl (8.6-10.3); Creatinine Clr Calc Pharmacy 30.6 ml/min; Globulin 3.5 gm/dl (2.5-4.0); Potassium 3.9 mmol/L (3.5-5.1); Total Protein 7.8 gm/dl (6.0-8.3)
[2024-07-16 15:01] LABS: Troponin I High Sensitivity 8.6 pg/ml (0-14)
--- NOTE | 2024-07-16 15:03 | XRay Report ---
XR chest 1V portable CLINICAL HISTORY: Chest pain, nonspecific COMPARISON STUDY: Chest CT March 29, 2022. Chest radiograph August 07, 2023. Lung screening CT September 10, 2023. FINDINGS: Lung volumes are normal. Hazy right basilar opacity is present. The left lung is clear. The re is no pneumothorax or pleural effusion. Cardiac size is normal. Mediastinal contours are normal. T here is no evidence for pulmonary edema. IMPRESSION: Hazy right basilar opacity. Although this may be related to overlying soft tissues, pneu monia could appear similar. Radiographic follow-up is recommended. ACT 112: Negative or not required by law. Electronically signed by: Dante Monk M.D. 07/16/2024 3:01 PM
--- NOTE | 2024-07-16 15:13 | Emergency Department Note ---
Impression & Plan RAVI (acute kidney injury), Acute hypoxic respiratory failure, Influenza A ED Provider Note HISTORY OF PRESENT ILLNESS: Patient is a 63-year-old female presenting with shortness of breath. Patient reports that on yesterday she was having multiple episodes of vomiting and nausea. Reports that today she woke up and was feeling very short of breath. She states she also started having diarrhea today. She has had a headache and some nasal congestion since yesterday. Denies any recent sick contact exposures. Denies any DVT or PE history. Denies any history of cardiac stents. She is not on any anticoagulation or antiplatelet therapy. Reports that it feels like she cannot catch her breath. Denies any abdominal pain. Denies any notable fevers at home. ROS: as above PHYSICAL EXAM: Constitutional: Patient appears in no acute distress. HENT: Head: Normocephalic and atraumatic. Eyes: EOMI, PERRL Mouth/Throat: Mucous membranes moist. Neck: Trachea midline. Neck supple. Cardiovascular: RRR, No murmurs, rubs or gallops. Intact distal pulses. Pulmonary/Chest: No respiratory distress. Breath sounds clear and equal bilaterally. No wheezes or rales. Conversationally dyspneic. Abdominal: Abdomen soft, no tenderness, rebound or guarding. Musculoskeletal: No edema, tenderness or deformity noted. Skin: Warm and dry. No rash, erythema, pallor or cyanosis Psychiatric: Appropriate mood and affect for situation. Neurological: Alert and keenly responsive. CN II-XII grossly intact, moving all extremities equally and fully. MDM: - Vitals signs stable - History obtained via patient. History as above. - Chronic conditions affecting care: cirrhosis; thrombocytopenia - Differential diagnoses include, but are not limited to: Congestive heart failure; acute coronary syndrome; COPD/asthma exacerbation; pulmonary edema; pulmonary embolism; pneumonia; pneumothorax; viral syndrome - Order placed for continuous cardiac monitoring. At this time, monitor showed rate of 88 bpm with normal sinus rhythm, per my interpretation. - External medical records reviewed. Primary care visit note dated 12/23/2023 was reviewed. Patient was seen for a Pap smear and encounter for acute low back pain. - EKG image interpreted by myself showed normal sinus rhythm. Rate 82 bpm. QT 378. No acute ischemic changes. Noted to have PVCs. - Laboratory workup interpreted by myself showed leukopenia (WBC 4.08); chronic thrombocytopenia (plt 70); elevated INR (1.2); slight hyponatremia (Na 133); RAVI (Cr 1.49); normal troponin; normal BNP - CXR image interpreted by myself negative for any evidence of pneumonia, per my interpretation. However, radiology notes a hazy right basilar opacity which could be overlying soft tissue versus pneumonia. - Viral respiratory panel positive for influenza A. - Patient had a coughing fit while in the emergency department and remained hypoxic afterwards and was placed on supplemental oxygen. - Patient's vomiting started yesterday and shortness of breath was today, she is within the window for Tamiflu dosing. Given her new oxygen requirement, will admit to hospitalist service. - Discussion was had with clinical case manager about patient's case and need for admission - Hospitalist consulted for admission - Patient admitted [facility] hospitalist service for further evaluation and management. ASSESSMENT AND PLAN: Diagnosis: Influenza A; acute hypoxia; RAVI Plan: Admit Past Med/Surg History Problem List (Updated 07/16/24 @ 17:18 by Jemma Wylie MD) Influenza A (Acute) Acute hypoxic respiratory failure (Acute) RAVI (acute kidney injury) (Acute) RAVI (acute kidney injury) (Acute) Cirrhosis of liver Medical History Hx of dehydration Cataract Medical marijuana use History of COVID-19 Anxiety History of asthma Low blood pressure Cirrhosis of liver Nicotine abuse Cirrhosis, alcoholic Thrombocytopenia Surgical History History of cataract surgery History of colonoscopy History of anesthesia reaction History of D&C History of tooth extraction Family History Grandmother (Maternal) Breast cancer Mother Brain tumor Sister Liver disease Pancreatic cancer Brother Skin cancer Other No family history of adverse response to anesthesia Denies family history of Ovarian cancer Prostate cancer Diabetes Myocardial infarction Lung cancer Colorectal cancer Stroke Social History (Updated 09/15/23 @ 13:46 by CRYSTAL Torres) Smoking Status: Current every day smoker Tobacco Type: Cigarettes Age Started Using Tobacco: 13; packs per day: 1; Second Hand Exposure: No; Do You Dip or Chew Tobacco: No; Hx Alcohol Use: No (quit 2021) Hx Substance Use: No Preferred Language: Indonesian Communication Ability: Effective Visual Impairment: Limited Hearing Ability: Normal Jumpbasting Canvas Baster Required: No marital status: Current Living Situation: Spouse current occupational status: unemployed How many Children do You have: 1 Feels Safe at Home: Yes Childhood Exposure to Second-Hand Smoke: Yes Diet: low salt and regular caffeine: Yes (3 (6oz) cups) Dental Care, Regularly: No Physical Activity Frequency: Does not Exercise Seatbelt Use: always Sunscreen Use: No Do you think of yourself as: straight/heterosexual Assistive Devices: Denture - Upper, Denture - Lower and Glasses Allergies Allergies Allergy/AdvReac Type Severity Reaction Status Date / Time aspartame Allergy Intermediate avoid Verified 03/04/24 14:10 because of liver function sucralose Allergy Intermediate avoid Verified 03/04/24 14:10 [From Splenda (sucralose)] because of liver function Home Meds Home Medications Medication Instructions Recorded Confirmed Medical Marijuana Card 1 dose inhalation UD PRN Anxiety 08/22/22 07/16/24 fexofenadine 180 mg tablet 180 mg PO QAM 11/26/22 07/16/24 psyllium husk 3.4 gram/5.4 gram 1 tsp PO QPM 08/26/23 07/16/24 oral powder (Metamucil) folic acid 1 mg tablet 1 mg PO QAM 07/16/24 07/16/24 magnesium chloride 64 mg 64 mg PO QAM 07/16/24 07/16/24 (magnesium chloride) tablet,delayed release (Mag 64) Previous Rx's Medication Instructions Recorded furosemide 40 mg tablet 20 mg (1/2 x 40 mg) PO QAM #90 tabs 03/04/24 spironolactone 25 mg tablet 25 mg PO QAM #90 tabs 03/04/24 Results & Data (ED) Vital Signs Vital Signs - 24 hr 07/16/24 12:55 07/16/24 14:41 07/16/24 14:41 Temperature 36.7 C Temperature Source Temporal Artery Scan Pulse Rate 84 Pulse Rate [Apical] 83 Respiratory Rate 20 23 Respiratory Depth Normal Blood Pressure 134/77 Blood Pressure [Left Arm] 137/70 Blood Pressure Mean 96 Blood Pressure Mean [Left Arm] 92 Blood Pressure Position Sitting Pulse Oximetry 93 91 91 Oxygen Delivery Method Room Air Room Air Oxygen Flow Rate Sepsis Recent Fever Within 48 Hours No Sepsis New/Unexplained Change in Mental Status N/A Sepsis Action Taken by Nursing No Action Required Oxygen Flow Rate - Titration Pulse Oximetry Post Tiitration 07/16/24 14:42 07/16/24 14:42 07/16/24 15:03 Temperature Temperature Source Pulse Rate 88 Pulse Rate [Apical] Respiratory Rate Respiratory Depth Blood Pressure Blood Pressure [Left Arm] Blood Pressure Mean Blood Pressure Mean [Left Arm] Blood Pressure Position Pulse Oximetry 93 93 Oxygen Delivery Method Room Air Room Air Oxygen Flow Rate Sepsis Recent Fever Within 48 Hours Sepsis New/Unexplained Change in Mental Status Sepsis Action Taken by Nursing Oxygen Flow Rate - Titration Pulse Oximetry Post Tiitration 07/16/24 16:12 07/16/24 16:12 Temperature Temperature Source Pulse Rate Pulse Rate [Apical] 92 H Respiratory Rate 22 Respiratory Depth Blood Pressure Blood Pressure [Left Arm] 117/53 L Blood Pressure Mean Blood Pressure Mean [Left Arm] 74 Blood Pressure Position Pulse Oximetry 94 88 L Oxygen Delivery Method Nasal Cannula Room Air Nasal Cannula Oxygen Flow Rate 3 0 Sepsis Recent Fever Within 48 Hours Sepsis New/Unexplained Change in Mental Status Sepsis Action Taken by Nursing Oxygen Flow Rate - Titration 3 Pulse Oximetry Post Tiitration 94 Laboratory Data 07/16/24 14:17 07/16/24 14:17 Lab Results 07/16/24 Range/Units 14:17 WBC 4.08 L (4.8-10.8) K/ul RBC 4.81 (4.20-5.40) M/uL Hgb 15.6 (12.0-16.0) g/dl Hct 44.6 (37.0-47.0) % MCV 92.7 (80.0-100.0) fL MCH 32.4 (25.0-34.0) pg MCHC 35.0 (32.0-36.0) g/dL RDW Std Deviation 44.5 (36.4-46.3) fL RDW Coeff of Justina 13.0 (11.5-14.5) % Plt Count 70 L (130-400) K/uL MPV 10.5 (9.4-12.4) fL Immature Gran % (Auto) 0.2 % Neut % (Auto) 75.8 % Lymph % (Auto) 14.5 % Dooly % (Auto) 9.1 % Eos % (Auto) 0.2 % Baso % (Auto) 0.2 % Neut # (Auto) 3.09 (1.40-6.50) K/uL Lymph # (Auto) 0.59 L (1.20-3.40) K/uL Dooly # (Auto) 0.37 (0.11-0.59) K/uL Eos # (Auto) 0.01 (0.00-0.50) K/uL Baso # (Auto) 0.01 (0.00-0.20) K/uL Immature Gran # (Auto) 0.01 (0.01-0.20) K/uL PT 13.2 H (9.0-12.0) Seconds INR 1.2 H (0.9-1.1) APTT 31 (21-31) Seconds PTT Ratio 1.2 Sodium 133 L (136-145) mmol/L Potassium 3.9 (3.5-5.1) mmol/L Chloride 100 (98-107) mmol/L Carbon Dioxide 24 (21-32) mmol/L Anion Gap 9 (3-11) BUN 29 H (6-23) mg/dl Creatinine 1.49 H (0.6-1.2) mg/dl Est Cr Clr Drug Dosing 30.6 ml/min eGFR 39.23 BUN/Creatinine Ratio 19.5 (10-20) Glucose 106 H (70-99(Fasting)) mg/dl Calcium 9.7 (8.6-10.3) mg/dl Total Bilirubin 1.0 (0.2-1.0) mg/dl AST 29 (13-39) U/L ALT 14 (7-52) U/L Alkaline Phosphatase 72 (34-104) U/L Troponin I High Sens 8.6 (0-14) pg/ml B-Natriuretic Peptide 145 H (0-100) pg/ml Total Protein 7.8 (6.0-8.3) gm/dl Albumin 4.3 (3.4-5.0) gm/dl Globulin 3.5 (2.5-4.0) gm/dl Albumin/Globulin Ratio 1.2 (0.9-2) Adenovirus (PCR) Not Detected (NotDetected) B. pertussis DNA (PCR) Not Detected (NotDetected) B.parapertussis DNA PCR Not Detected (NotDetected) C. pneumoniae DNA (PCR) Not Detected (NotDetected) Coronavirus OC43 (PCR) Not Detected (NotDetected) Coronavirus HKU1 (PCR) Not Detected (NotDetected) Coronavirus 229E (PCR) Not Detected (NotDetected) SARS-CoV-2 (PCR) Not Detected (NotDetected) Coronavirus NL63 (PCR) Not Detected (NotDetected) Human Metapneumovir PCR Not Detected (NotDetected) Influenza A (H3) PCR DETECTED A (NotDetected) Influenza Type B (PCR) Not Detected (NotDetected) M. pneumoniae (PCR) Not Detected (NotDetected) Parainfluenza 1 (PCR) Not Detected (NotDetected) Parainfluenza 2 (PCR) Not Detected (NotDetected) Parainfluenza 3 (PCR) Not Detected (NotDetected) Parainfluenza 4 (PCR) Not Detected (NotDetected) RSV (PCR) Not Detected (NotDetected) Entero/Rhino (PCR) Not Detected (NotDetected) Imaging Data Radiologist's Impression: Chest X-Ray 07/16/24 12:58 XR chest 1V portable CLINICAL HISTORY: Chest pain, nonspecific COMPARISON STUDY: Chest CT March 29, 2022. Chest radiograph August 07, 2023. Lung screening CT September 10, 2023. FINDINGS: Lung volumes are normal. Hazy right basilar opacity is present. The left lung is clear. There is no pneumothorax or pleural effusion. Cardiac size is normal. Mediastinal contours are normal. There is no evidence for pulmonary edema. IMPRESSION: Hazy right basilar opacity. Although this may be related to overlying soft tissues, pneumonia could appear similar. Radiographic follow-up is recommended. ACT 112: Negative or not required by law. Electronically signed by: Dante Monk M.D. 07/16/2024 3:01 PM Discharge Plan Visit Data Chief Complaint: Shortness of Breath/Dyspnea Stated Complaint: SOB ED Provider: Jemma Wylie Discharge Problem: RAVI (acute kidney injury), Acute hypoxic respiratory failure, Influenza A Forms Stand Alone Forms: [facility] [employer] Prescriptions Prescriptions: No Action spironolactone 25 mg tablet 25 mg PO QAM Qty: 90 3RF furosemide 40 mg tablet 20 mg PO QAM Qty: 90 3RF Medical Marijuana Card 1 dose inhalation UD PRN (Reason: Anxiety) Metamucil 3.4 gram/5.4 gram powder 1 tsp PO QPM Rx Instructions: mix into at least 8 oz of water or juice before administering fexofenadine 180 mg Tablet 180 mg PO QAM folic acid 1 mg tablet 1 mg PO QAM magnesium chloride [Mag 64] 64 mg tablet,delayed release (DR/EC) 64 mg PO QAM Referrals Referrals: PCP,NO [Physician] -
[2024-07-16 15:16] LABS: Adenovirus PCR Not Detected (NotDetected); Bordetella parapertussis PCR Not Detected (NotDetected); Bordetella pertussis PCR Not Detected (NotDetected); Chlamydia pneumoniae PCR Not Detected (NotDetected); Coronavirus 229E PCR Not Detected (NotDetected); Coronavirus CoV-2 (COVID19)PCR Not Detected (NotDetected); Coronavirus HKU1 PCR Not Detected (NotDetected); Coronavirus NL63 PCR Not Detected (NotDetected); Coronavirus OC43PCR Not Detected (NotDetected); Human Metapneumovirus PCR Not Detected (NotDetected); Influenza A (H3) PCR DETECTED (NotDetected); Influenza B PCR Not Detected (NotDetected); Mycoplasma pneumoniae PCR Not Detected (NotDetected); Parainfluenza Virus 1 PCR Not Detected (NotDetected); Parainfluenza Virus 2 PCR Not Detected (NotDetected); Parainfluenza Virus 3 PCR Not Detected (NotDetected); Parainfluenza Virus 4 PCR Not Detected (NotDetected); Respiratory Syncytial VirusPCR Not Detected (NotDetected); Rhinovirus/Enterovirus PCR Not Detected (NotDetected)
--- NOTE | 2024-07-16 15:36 | Electrocardiogram Report ---
Test Reason : Blood Pressure : */* mmHG Vent. Rate : 82 BPM Atrial Rate : 82 BPM P-R Int : 154 ms QRS Dur : 84 ms QT Int : 378 ms P-R-T Axes : 73 90 78 degrees QTcB Int : 441 ms Sinus rhythm with occasional Premature ventricular complexes Biatrial enlargement Rightward axis Abnormal ECG When compared with ECG of 07-Aug-2023 11:48, Premature ventricular complexes are now Present Confirmed by Feliz Slaughter ([id number]) on 07/16/2024 3:36:06 PM Referred By: Confirmed By: Feliz Slaughter
[2024-07-16 15:37] LABS: INR 1.2 (0.9-1.1); Partial Thromboplastin Ratio 1.2; Partial Thromboplastin Time 31 Seconds (21-31); Prothrombin Time 13.2 Seconds (9.0-12.0)
--- NOTE | 2024-07-16 16:51 | History & Physical Report ---
Date of Service July 16, 2024 Assessment & Plan (1) Influenza A: (2) Acute hypoxic respiratory failure: (3) RAVI (acute kidney injury): (4) Cirrhosis of liver: Ja Montenegro is a 63-year-old female with PMH of asthma and liver cirrhosis. She presented on 07/16 for sinus congestion, headache, and SOB that started the day prior. Patient reports that she took her regular morning medicine yesterday, and was eating a cupcake, when she started to cough up phlegm and then vomited. She reports she was unable to keep down water for most of the day. Then that evening, she began to experience difficulty breathing. She endorses both SOB at rest and with exertion, however it is worse with exertion. She also endorses productive cough (yellow sputum production). No fevers at home. #Influenza A Droplet isolation precautions CXR revealed a hazy right basilar opacity; unclear if this is pneumonia Given acute onset of symptoms and no leukocytosis or fever, will defer antibiotics at this time Supportive care Incentive spirometry, flutter valve DuoNeb 3mL Q6R Benzonatate PRN IV antiemetics PRN Acetaminophen as needed for pain/fever Tamiflu 75 mg IV x 1 In the setting of RAVI, will dose-reduce further Tamiflu to 30 mg twice daily #Acute hypoxic respiratory failure SpO2 88% on RA Not on supplemental oxygen at baseline Titrate supplemental oxygen as needed to maintain SpO2 >94% Continuous pulse oximetry #RAVI BUN 29, creatinine 1.49 (baseline around 1.07) Avoid nephrotoxic agents for possible Suspect prerenal in the setting of poor p.o. intake x 24 hours NSS at 80mL/hr x 1 L Trend BMP #Liver cirrhosis No fever; will defer Tylenol for now #Current everyday tobacco cigarette smoker Continue to encourage cessation Disposition: Admit to [facility] Full code Full liquid diet for now VTE PPx: SCDs; hold chemical DVT PPx in the setting of thrombocytopenia History of Present Illness Chief Complaint: SOB/dyspnea Primary Care Provider: Jethro Mills DO Moni is a 63-year-old female with PMH of asthma and liver cirrhosis. She presented on 07/16 for sinus congestion, headache, and SOB that started the day prior. Patient reports that she took her regular morning medicine yesterday, and was eating a cupcake, when she started to cough up phlegm and then vomited. She reports she was unable to keep down water for most of the day. Then that evening, she began to experience difficulty breathing. She endorses both SOB at rest and with exertion, however it is worse with exertion. She also endorses productive cough (yellow sputum production). No fevers at home. No prior history of DVT/PE. No supplemental oxygen at baseline or CPAP at night. Patient took Advil 400 mg this morning for her headache and congestion. She has been told in the past that she is unable to take pain medicine due to her liver cirrhosis, but she reports her head was pounding. She does have a history of asthma, but does not have an inhaler at home as she has not needed it in years. Patient is a current tobacco cigarette smoker; 1 PPD. She also endorses marijuana use. She denies vaping or recent alcohol use. Patient did not receive her flu shot this year. She denies any swelling in her legs. No prior history of heart failure to her knowledge. Patient is hypertensive at 117/53, and SpO2 is 88% on RA. ED course: Zofran 4 mg IV ROS: Patient endorses headache, productive cough (yellow), SOB at rest and with exertion, vomiting (up phlegm), and diarrhea Patient denies fever, chills, night-sweats, dizziness, lightheadedness, chest pain, chest palpitations, pleuritic CP, nausea, melena, burning with urination, blood in the urine/stool, or numbness/tingling in the arms or legs. Allergies Allergy/AdvReac Type Severity Reaction Status Date / Time aspartame Allergy Intermediate avoid Verified 03/04/24 14:10 because of liver function sucralose Allergy Intermediate avoid Verified 03/04/24 14:10 [From Splenda (sucralose)] because of liver function Home Medications Medication Instructions Recorded Confirmed Type Medical Marijuana Card 1 dose inhalation UD PRN Anxiety 08/22/22 07/16/24 History fexofenadine 180 mg tablet 180 mg PO QAM 11/26/22 07/16/24 History psyllium husk 3.4 gram/5.4 gram 1 tsp PO QPM 08/26/23 07/16/24 History oral powder (Metamucil) furosemide 40 mg tablet 20 mg (1/2 x 40 mg) PO QAM #90 tabs 03/04/24 07/16/24 Rx spironolactone 25 mg tablet 25 mg PO QAM #90 tabs 03/04/24 07/16/24 Rx folic acid 1 mg tablet 1 mg PO QAM 07/16/24 07/16/24 History magnesium chloride 64 mg 64 mg PO QAM 07/16/24 07/16/24 History (magnesium chloride) tablet,delayed release (Mag 64) Past Med/Surg History Problem List (Updated 07/16/24 @ 17:18 by Jemma Wylie MD) Influenza A (Acute) Acute hypoxic respiratory failure (Acute) RAVI (acute kidney injury) (Acute) RAVI (acute kidney injury) (Acute) Cirrhosis of liver Medical History Hx of dehydration Cataract Medical marijuana use History of COVID-19 Anxiety History of asthma Low blood pressure Cirrhosis of liver Nicotine abuse Cirrhosis, alcoholic Thrombocytopenia Surgical History History of cataract surgery History of colonoscopy History of anesthesia reaction History of D&C History of tooth extraction Family History Grandmother (Maternal) Breast cancer Mother Brain tumor Sister Liver disease Pancreatic cancer Brother Skin cancer Other No family history of adverse response to anesthesia Denies family history of Ovarian cancer Prostate cancer Diabetes Myocardial infarction Lung cancer Colorectal cancer Stroke Social History (Updated 09/15/23 @ 13:46 by CRYSTAL Torres) Smoking Status: Current every day smoker Tobacco Type: Cigarettes Age Started Using Tobacco: 13; packs per day: 1; Second Hand Exposure: No; Do You Dip or Chew Tobacco: No; Hx Alcohol Use: No (quit 2021) Hx Substance Use: No Preferred Language: Qatari Communication Ability: Effective Visual Impairment: Limited Hearing Ability: Normal 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 marital status: Current Living Situation: Spouse current occupational status: unemployed How many Children do You have: 1 Feels Safe at Home: Yes Childhood Exposure to Second-Hand Smoke: Yes Diet: low salt and regular caffeine: Yes (3 (6oz) cups) Dental Care, Regularly: No Physical Activity Frequency: Does not Exercise Seatbelt Use: always Sunscreen Use: No Do you think of yourself as: straight/heterosexual Assistive Devices: Denture - Upper, Denture - Lower and Glasses Review of Systems Review of Systems: See HPI above Physical Exam Physical Exam: General: Mild respiratory distress; pleasant affect; non-toxic appearing; frail appearing; cooperative; SpO2 96% on 2 L NC HEENT: normocephalic, atraumatic; no scleral icterus; PERRLA; vision and hearing intact Neck: supple; no lymphadenopathy; trachea midline Skin: warm, dry without signs of tenting; no cyanosis; no rashes, bruising, lesions, or erythema noted CV: chest wall NTP; RRR; S1/S2 normal; no murmurs/rubs/gallops; pulses intact and symmetric at radial, DP, and PT Lungs: Mild respiratory distress; conversational dyspnea and labored breathing; mild expiratory wheeze auscultated in lower lung shell bilaterally ABD: Soft, NTP; BS present; no rebound/guarding; no distention MSK: no tics or fasciculations; no edema noted in the LEs b/l, nonerythematous Neuro: A&Ox3; normal mood and affect; fluent speech; no focal deficits; sensation grossly intact in the LEs b/l Results & Data Results & Data Vital Signs (Past 12 Hours) Vital Signs Temp Pulse Pulse Resp BP BP Pulse Ox 07/16/24 16:12 88 L 07/16/24 16:12 92 H 22 117/53 L 94 07/16/24 15:03 88 07/16/24 14:42 93 07/16/24 14:42 93 07/16/24 14:41 83 23 137/70 91 07/16/24 14:41 91 07/16/24 12:55 36.7 C 84 20 134/77 93 O2 Del Method O2 Flow Rate 07/16/24 16:12 Room Air, Nasal Cannula 0 07/16/24 16:12 Nasal Cannula 3 07/16/24 15:03 07/16/24 14:42 Room Air 07/16/24 14:42 Room Air 07/16/24 14:41 Room Air 07/16/24 14:41 Room Air 07/16/24 12:55 Laboratory Results Abnormal lab results 07/16/24 Range/Units 14:17 WBC 4.08 L (4.8-10.8) K/ul Plt Count 70 L (130-400) K/uL Lymph # (Auto) 0.59 L (1.20-3.40) K/uL PT 13.2 H (9.0-12.0) Seconds INR 1.2 H (0.9-1.1) Sodium 133 L (136-145) mmol/L BUN 29 H (6-23) mg/dl Creatinine 1.49 H (0.6-1.2) mg/dl Glucose 106 H (70-99(Fasting)) mg/dl B-Natriuretic Peptide 145 H (0-100) pg/ml Influenza A (H3) PCR DETECTED A (NotDetected) Diagnostic Findings Chest X-Ray 07/16/24 12:58 XR chest 1V portable CLINICAL HISTORY: Chest pain, nonspecific COMPARISON STUDY: Chest CT March 29, 2022. Chest radiograph August 07, 2023. Lung screening CT September 10, 2023. FINDINGS: Lung volumes are normal. Hazy right basilar opacity is present. The left lung is clear. There is no pneumothorax or pleural effusion. Cardiac size is normal. Mediastinal contours are normal. There is no evidence for pulmonary edema. IMPRESSION: Hazy right basilar opacity. Although this may be related to overlying soft tissues, pneumonia could appear similar. Radiographic follow-up is recommended. ACT 112: Negative or not required by law. Electronically signed by: Dante Monk M.D. 07/16/2024 3:01 PM ECG Additional Comments: ECG revealed sinus rhythm with occasional PVCs at 82 bpm; QTc 441 Code Status & VTE Plan Code Status Full code VTE Prophylaxis Plan VTE Prophylaxis will be ordered: Yes Supervising Physician Co-Signing Physician Notes Patient seen and examined, chart reviewed, case discussed with Kevin Day PA-C and I agree with the assessment and plan as above except as otherwise noted Labs and images reviewed Moni is a 63-year-old female with past medical history of cirrhosis, nicotine use, anxiety/depression who presents with acute hypoxic respiratory failure and who is influenza A positive. She has an RAVI with creatinine 1.49, baseline creatinine around 1.1. Chest x-ray shows basilar opacity? Secondary pneumonia. Has mild leukopenia without absolute neutropenia. Will treat for flu A and Tamiflu added, renally adjusted. If clinically worsening then cover for possible right basilar superimposed pneumonia with Rocephin, and obtain MRSA nare. Given 1 day time course and fluid positive suspect current symptoms are viral. Agree with above. PG Care Time/CCT Total # of Minutes Spent Total Time Spent with Patient: Total time spent is greater than 50% in coordination of care (as documented) at patient's floor/unit and/or counseling patient: Coding [place] [address] INT INP/OBS CARE 3/75MIN Patient Type Established History Comprehensive Exam Comprehensive Medical Decision Making High Complexity Diagnoses Influenza A J10.1 Acute hypoxic respiratory failure J96.01 RAVI (acute kidney injury) N17.9 Cirrhosis of liver K74.60
[2024-07-16] MEDS: ONDANSETRON INJ 2 MG/ML 2 ML VIAL IV STA (17:32)
[2024-07-16] MEDS: OSELTAMIVIR PHOSPHATE 75 MG CAP PO STA (17:34)
[2024-07-16] MEDS: SODIUM CHLORIDE 0.9% 1,000 ML IV SCH (17:34)
[2024-07-16] MEDS ORDERED: ONDANSETRON INJ 2 MG/ML 2 ML VIAL IV PRN (20:13)
[2024-07-16] MEDS ORDERED: MELATONIN 3 MG TAB PO PRN (20:13)
[2024-07-16] MEDS: COUGH DROP (SUGAR FREE) LOZ 24 LOZ/1 BOX BUCCAL ONE (23:34)
[2024-07-17 06:38] LABS: Basophils # (auto) 0.01 K/uL (0.00-0.20); Basophils % (auto) 0.3 %; Eosinophils # (auto) 0.01 K/uL (0.00-0.50); Eosinophils % (auto) 0.3 %; Hematocrit (blood only) 40.7 % (37.0-47.0); Hemoglobin 14.1 g/dl (12.0-16.0); Immature Granulocytes # (auto) 0.01 K/uL (0.01-0.20); Immature Granulocytes % (auto) 0.3 %; Lymphocytes % (auto) 23.7 %; Mean Corpuscular Hemoglobin 32.5 pg (25.0-34.0); Mean Corpuscular Hgb Conc 34.6 g/dL (32.0-36.0); Mean Corpuscular Volume 93.8 fL (80.0-100.0); Monocytes # (auto) 0.36 K/uL (0.11-0.59); Monocytes % (auto) 12.2 %; Neutrophils # (auto) 1.86 K/uL (1.40-6.50); Neutrophils % (auto) 63.2 %; Platelet Count 67 K/uL (130-400); RDW Coefficient of Variation 12.9 % (11.5-14.5); RDW Standard Deviation 44.6 fL (36.4-46.3); Red Blood Count 4.34 M/uL (4.20-5.40); White Blood Count 2.95 K/ul (4.8-10.8)
[2024-07-17 07:10] LABS: BUN Creatinine Ratio 24.5 (10-20); Calcium 8.8 mg/dl (8.6-10.3); Creatinine Clr Calc Pharmacy 48.4 ml/min; Magnesium 1.9 mg/dl (1.7-2.4); Potassium 4.1 mmol/L (3.5-5.1)
[2024-07-17] MEDS: FEXOFENADINE HCL 180 MG TAB PO SCH (08:52)
[2024-07-17] MEDS: MAGNESIUM CHLORIDE W/CALCIUM 64MG DELAYED REL TAB PO SCH (08:52)
[2024-07-17] MEDS: FOLIC ACID 1 MG TAB PO SCH (08:52)
[2024-07-17] MEDS: OSELTAMIVIR PHOSPHATE SUSP 30 MG/5 ML UDP PO SCH (08:56)
[2024-07-17] MEDS: NICOTINE 21 MG/24 HR TDSY TD SCH (09:36)
[2024-07-17] MEDS: DOXYCYCLINE HYCLATE 100 MG CAP PO SCH (10:13)
[2024-07-17] MEDS: NICOTINE 7 MG/24 HR TDSY TD SCH (10:13)
[2024-07-17] MEDS: predniSONE 20 MG TAB PO SCH (10:13)
--- NOTE | 2024-07-17 12:02 | Hospitalist Progress Note ---
"Date of Service July 17, 2024 Assessment & Plan (1) Influenza A: (2) Acute hypoxic respiratory failure: (3) RAVI (acute kidney injury): (4) Cirrhosis of liver: Ja Montenegro is a 63-year-old female with PMH of asthma and liver cirrhosis. She presented on 07/16 for sinus congestion, cough, diarrhea headache, and SOB that started the day prior.SOB is worse with exertion, also endorses productive cough. Smoking hx, denies prior dx of COPD or use of maintenance inhalers. [employer] on admission positive for influenza A, CXR with hazy right basilar opacity. Also found to have RAVI with Cr 1.49. Admitted for tamiflu, oxygen titration and IV Fluids. #Influenza A | Wheezing | Acute hypoxic respiratory failure CXR revealed a hazy right basilar opacity; less likely bacterial PNA, but suspect pt has undiagnosed COPD, will add doxycycline 100mg BID - recommend follow up xray outpatient With wheezing 40mg Prednisone PO added, steroid taper at discharge Supportive care: IS, FV, prn nebs Continue Tamiflu, renally dosed Wean oxygen, goal > 92%. Baseline is room air #RAVI - resolved On admission: BUN 29, creatinine 1.49 (baseline 1.07) Received IVFs, and Cr improved to 0.94 Resume home spironolactone, continue to hold lasix Recheck BMP in a.m. #Liver cirrhosis | thrombocytopenia Minimize Tylenol, LFTs WNL on admission Thrombocytopenia is chronic but acutely worse likely in the setting of influenza A. No evidence of acute bleeding. #Current everyday tobacco cigarette smoker Continue to encourage cessation Nicotine patch while inpatient Disposition: Continued inpatient stay, weaning oxygen VTE PPx: SCDs; encourage ambulation Admission and Anticipated Discharge Date Admission Date: July 16, 2024 Supervising Physician Co-Signing Physician Notes PA Supervision Note: I personally saw and examined the patient. I verified all morgan points and agree with KJ Ashraf with the following exceptions and/or additions: S-Pt feeling better, tolerating regular diet, says food is not low sodium like she is used to O- Vitals reviewed Gen: [AAOx3, NAD] HEENT: [anicteric sclerae] CBC, BMP reviewed A/P-63 yo female here with Flu A, hypoxia, possible PNA start steroids, doxy, continue tamiflu resume lasix likely tomorrow Subjective patient seen sitting up in bed, eating lunch. No signs of aspiration. Patient denies coughing or issues with this while eating. She did have cough this morning when she woke up producing phlegm. Patient states that she has never been told that she has COPD or other chronic lung problems. States that she was feeling weak at home but a little bit stronger today Poor appetite over the last few days at home and has been having some diarrhea. Review of Systems Review of Systems: All systems reviewed & are unremarkable except as noted in Subjective Physical Exam Physical Exam: General: NAD, VS as above HEENT: MMdry Resp: normal respiratory effort, Weaned down to 1 L nasal cannula, expiratory wheezing right lower base CV: RRR, no murmur, Abd: normal bowel sounds, non tender, no hepatosplenomegaly Extremities: Moves all extremities, no edema Neuro: A&O x3, Skin: intact, no lesions noted Results & Data Results & Data Vital Signs (Past 12 Hours) Vital Signs Temp Pulse Resp BP Pulse Ox Pulse Ox O2 Del Method 07/17/24 07:51 98.1 F 62 18 95/57 L 96 Nasal Cannula 07/17/24 07:20 Nasal Cannula 07/17/24 07:20 97 07/17/24 00:21 95 O2 Del Method O2 Flow Rate O2 Flow Rate 07/17/24 07:51 2 07/17/24 07:20 2 07/17/24 07:20 Nasal Cannula 2 07/17/24 00:21 Nasal Cannula 2 Laboratory Results CBC and chemistry reviewed BioFire reviewed Diagnostic Findings chest x-ray reviewed PG Care Time/CCT Total # of Minutes Spent Total Time Spent with Patient: Total time spent is greater than 50% in coordination of care (as documented) at patient's floor/unit and/or counseling patient: Coding Level of Care Code 50927 SUB INP/OBS CARE 3/50MIN Diagnoses Influenza A J10.1 Acute hypoxic respiratory failure J96.01 RAVI (acute kidney injury) N17.9 Cirrhosis of liver K74.60"
[2024-07-17] MEDS ORDERED: ALBUT/IPRATROP 3MG/0.5MG NEB 3 ML VIAL NEB PRN (13:48)
[2024-07-18 06:27] LABS: Hematocrit (blood only) 40.1 % (37.0-47.0); Hemoglobin 13.8 g/dl (12.0-16.0); Mean Corpuscular Hemoglobin 32.5 pg (25.0-34.0); Mean Corpuscular Hgb Conc 34.4 g/dL (32.0-36.0); Mean Corpuscular Volume 94.4 fL (80.0-100.0); Mean Platelet Volume 10.5 fL (9.4-12.4); Platelet Count 76 K/uL (130-400); RDW Coefficient of Variation 13.1 % (11.5-14.5); RDW Standard Deviation 45.1 fL (36.4-46.3); Red Blood Count 4.25 M/uL (4.20-5.40)
[2024-07-18 06:48] LABS: BUN Creatinine Ratio 31.9 (10-20); Calcium 9.4 mg/dl (8.6-10.3); Potassium 4.3 mmol/L (3.5-5.1)
[2024-07-18 07:20] VITALS: BP 106/65; PULSE 72; RESP 18; TEMP 97.3
[2024-07-18] MEDS: SPIRONOLACTONE 25 MG TAB PO SCH (08:14)
[2024-07-18] MEDS: FUROSEMIDE 20 MG TAB PO SCH (09:09)
--- NOTE | 2024-07-18 12:19 | Discharge Summary ---
"Discharge Summary Date of Service July 18, 2024 Principal Dx & Hospital Course #1 = Principal Diagnosis (1) Influenza A: (2) Acute hypoxic respiratory failure: (3) RAVI (acute kidney injury): (4) Cirrhosis of liver: Plan #Influenza A | Wheezing | Acute hypoxic respiratory failure Moni is a 63-year-old female with PMH of asthma and liver cirrhosis. She presented on 07/16 for sinus congestion, productive cough, diarrhea headache, and SOB on exertion that started the day prior.Smoking hx, denies prior dx of COPD or use of maintenance inhalers. [employer] on admission positive for influenza A, CXR with hazy right basilar opacity. Also found to have RAVI with Cr 1.49. Admitted for Tamiflu, oxygen titration and IV Fluids. Breathing has improved, and she has been weaned off oxygen and doing well on room air. She was covered with doxycycline for possible undiagnosed COPD exacerbation. Continue to use IS and FV. Continued on doxycycline, tamiflu and prednisone taper. Recommend f/u CXR to recheck hazy right basilar opacity. Consider outpatient testing for COPD with smoking hx. #RAVI - resolved On admission: BUN 29, creatinine 1.49, returned to baseline after IVFs. Continue home spironolactone and lasix. #Liver cirrhosis | thrombocytopenia LFTs WNL on admission. Thrombocytopenia is chronic but acutely worse likely in the setting of influenza A, but improving. No evidence of acute bleeding. #Current everyday tobacco cigarette smoker Continue to encourage cessation - did well with nicotine patch while inpatient. Disposition: discharge to home today Notes For Next Care Provider Recommend f/u CXR to recheck hazy right basilar opacity. Consider outpatient testing for COPD with smoking hx. Admission HPI Per Admitting Provider Moni is a 63-year-old female with PMH of asthma and liver cirrhosis. She presented on 07/16 for sinus congestion, headache, and SOB that started the day prior. Patient reports that she took her regular morning medicine yesterday, and was eating a cupcake, when she started to cough up phlegm and then vomited. She reports she was unable to keep down water for most of the day. Then that evening, she began to experience difficulty breathing. She endorses both SOB at rest and with exertion, however it is worse with exertion. She also endorses productive cough (yellow sputum production). No fevers at home. No prior history of DVT/PE. No supplemental oxygen at baseline or CPAP at night. Patient took Advil 400 mg this morning for her headache and congestion. She has been told in the past that she is unable to take pain medicine due to her liver cirrhosis, but she reports her head was pounding. She does have a history of asthma, but does not have an inhaler at home as she has not needed it in years. Patient is a current tobacco cigarette smoker; 1 PPD. She also endorses marijuana use. She denies vaping or recent alcohol use. Patient did not receive her flu shot this year. She denies any swelling in her legs. No prior history of heart failure to her knowledge. Patient is hypertensive at 117/53, and SpO2 is 88% on RA. ED course: Zofran 4 mg IV ROS: Patient endorses headache, productive cough (yellow), SOB at rest and with exertion, vomiting (up phlegm), and diarrhea Patient denies fever, chills, night-sweats, dizziness, lightheadedness, chest pain, chest palpitations, pleuritic CP, nausea, melena, burning with urination, blood in the urine/stool, or numbness/tingling in the arms or legs. Discharge Exam General: NAD, VS as above HEENT: MMM Resp: normal respiratory effort, wheezing much improved. weaned down to room air. CV: RRR, no murmur, Abd: normal bowel sounds, non tender, no hepatosplenomegaly Extremities: Moves all extremities, no edema Neuro: A&O x3, Skin: intact, no lesions noted Discharge Plan Discharge Items Patient Disposition: Home - Self-Care Reason For Visit: INFLUENZA A, HYPOXIA Discharge Diagnosis: Influenza A Activity: Resume your previous activity Non-emergency contact: Primary Care Provider Call non-emergency contact if: you have any medication questions, your pain is not controlled, your pain is worsening and your temperature is above 101 Follow-up/Referrals: Jethro Mills DO [Primary Care Provider] - (Follow up in one week ) Diet: Low Sodium (2gm) Addtl Attending Provider Instructions: Ms. Ramiresmady, You were hospitalized after having shortness of breath at home - this was found to be from influenza A. You also had significant wheezing on exam, with concerns for possible underlying lung problems. You were treated with Tamiflu, doxycycline, and steroids - these will be continued at discharge. Recommendations: - Continue tamiflu (this is the antiviral to treat flu A) - Continue doxycycline for 5 more days, this is in antibiotic - take with food, take the whole course even if you feel better - Prednisone - this is a steroid to help with breathing, taper instructions on the bottle - Continue to use your incentive spirometer at home until you feel back to normal, this will help with your breathing. - You will need a follow up chest xray in a few weeks, this can be ordered by your PCP - Discuss with your PCP about getting evaluated for COPD (Chronic obstructive lung disease), you may benefit from daily inhalers - Anything you can do to cut back or quit smoking is going to help your overall health. No changes to your home medications. Please follow up with your PCP in one week. Activity: You can do normal everyday activities as your body allows. Take rest breaks if you feel tired. Do not overexert. Stop activity if you have pain, shortness of breath or feel dizzy. CONTACT YOUR PRIMARY CARE PROVIDER if you experience any of the following: Shortness of breath or difficulty breathing Fevers or chills Feeling tired with normal activity or experiencing dizziness or fainting Difficulty following your treatment plan, or difficulty taking medications CALL 911 OR GO TO THE EMERGENCY DEPARTMENT if you experience any of the following: Severe abdominal pain or nausea/vomiting Severe chest pain, or chest pain that radiates (moves) to your jaw or arm Sudden, severe shortness of breath or difficulty breathing Thank you for allowing us to participate in your care. Debbie Ashraf PA-C Pending Studies at Discharge: No Stand-Alone Forms: [facility], Smoking Cessation Medications and DC Order Prescriptions: New doxycycline hyclate 100 mg Capsule 100 mg PO BID 5 Days Qty: 10 0RF prednisone 10 mg tablet See Taper PO DIRECTED Qty: 16 0RF Taper: Taper, Blank 40 mg DAILY for 1 Day 30 mg DAILY for 2 Days 20 mg DAILY for 2 Days 10 mg DAILY for 2 Days Rx Instructions: see taper instructions oseltamivir [Tamiflu] 30 mg capsule 30 mg PO BID 3 Days Qty: 6 0RF albuterol sulfate 90 mcg/actuation HFA aerosol inhaler 2 inh inhalation Q6H PRN (Reason: shortness of breath or wheezing) Qty: 8.5 0RF Continued spironolactone 25 mg tablet 25 mg PO QAM Qty: 90 3RF furosemide 40 mg tablet 20 mg PO QAM Qty: 90 3RF Medical Marijuana Card 1 dose inhalation UD PRN (Reason: Anxiety) Metamucil 3.4 gram/5.4 gram powder 1 tsp PO QPM Rx Instructions: mix into at least 8 oz of water or juice before administering fexofenadine 180 mg Tablet 180 mg PO QAM folic acid 1 mg tablet 1 mg PO QAM magnesium chloride [Mag 64] 64 mg tablet,delayed release (DR/EC) 64 mg PO QAM Discharge Orders: Discharge Order (Routine); Ordered 07/18/24 Ordered By: Debbie Ashraf Admission Data Admit Date/Time: 07/16/24 17:21 Attending Provider: Vesta Kelley Admit Provider: Blayne Cuenca Primary Care Provider: Jethro Mills Other Providers: Blayne Cuenca Other Interventions: Discharge Summary Assessment (RN) Last Done: 07/18/24 12:41 Hospital Stay Data Consultations 07/16/24 16:55 ED Decision to Admit Stat Diagnostic Imagining Performed Chest X-Ray 07/16/24 12:58 XR chest 1V portable CLINICAL HISTORY: Chest pain, nonspecific COMPARISON STUDY: Chest CT March 29, 2022. Chest radiograph August 07, 2023. Lung screening CT September 10, 2023. FINDINGS: Lung volumes are normal. Hazy right basilar opacity is present. The left lung is clear. There is no pneumothorax or pleural effusion. Cardiac size is normal. Mediastinal contours are normal. There is no evidence for pulmonary edema. IMPRESSION: Hazy right basilar opacity. Although this may be related to overlying soft tissues, pneumonia could appear similar. Radiographic follow-up is recommended. ACT 112: Negative or not required by law. Electronically signed by: Dante Monk M.D. 07/16/2024 3:01 PM Pending Results Patient Have Any Pending Studies at Discharge: No Discharge Instructions Given to Patient (Per Discharging Provider) Ms. Kelley, Arsen were hospitalized after having shortness of breath at home - this was found to be from influenza A. You also had significant wheezing on exam, with concerns for possible underlying lung problems. You were treated with Tamiflu, doxycycline, and steroids - these will be continued at discharge. Recommendations: - Continue tamiflu (this is the antiviral to treat flu A) - Continue doxycycline for 5 more days, this is in antibiotic - take with food, take the whole course even if you feel better - Prednisone - this is a steroid to help with breathing, taper instructions on the bottle - Continue to use your incentive spirometer at home until you feel back to normal, this will help with your breathing. - You will need a follow up chest xray in a few weeks, this can be ordered by your PCP - Discuss with your PCP about getting evaluated for COPD (Chronic obstructive lung disease), you may benefit from daily inhalers - Anything you can do to cut back or quit smoking is going to help your overall health. No changes to your home medications. Please follow up with your PCP in one week. Activity: You can do normal everyday activities as your body allows. Take rest breaks if you feel tired. Do not overexert. Stop activity if you have pain, shortness of breath or feel dizzy. CONTACT YOUR PRIMARY CARE PROVIDER if you experience any of the following: Shortness of breath or difficulty breathing Fevers or chills Feeling tired with normal activity or experiencing dizziness or fainting Difficulty following your treatment plan, or difficulty taking medications CALL 911 OR GO TO THE EMERGENCY DEPARTMENT if you experience any of the following: Severe abdominal pain or nausea/vomiting Severe chest pain, or chest pain that radiates (moves) to your jaw or arm Sudden, severe shortness of breath or difficulty breathing Thank you for allowing us to participate in your care. Debbie Ashrfa PA-C Supervising Physician Co-Signing Physician Notes PA Supervision Note: I personally saw and examined the patient. I verified all morgan points and agree with KJ Ashraf with the following exceptions and/or additions: S-Pt feeling much better, weaned off oxygen, ambulating, ready for discharge O- Vitals reviewed Gen: AAOx3, NAD HEENT: Anicteric sclerae Pulm: Clear to auscultation bilaterally, no wheezes crackles or rhonchi CV: RRR, no MGR, normal S1-S2 CBC, BMP reviewed A/P-63 yo female here with Flu A, hypoxia, possible PNA Much improved -Continue steroids, doxy, continue tamiflu on discharge, prescribed albuterol inhaler for as needed use Resumed home diuretics, blood pressures normal, renal function back to normal Total Time Total Time Spent Total Time Spent (In Minutes): Time spent day of discharge 35 minutes including direct patient care, medication reconciliation, documentation, review of labs and images, and coordination of care. Coding Level of Care Code 17916 INP/OBS DISCH >30 MIN Diagnoses Influenza A J10.1 Acute hypoxic respiratory failure J96.01 RAVI (acute kidney injury) N17.9 Cirrhosis of liver K74.60"
[2024-07-18 12:44] VITALS: O2SAT 93
== END 2024-07-18 13:38 | disposition home or self-care (01) | DRG 193 ==
LOC: ED 12:49 → INTOOBSV 17:21 → SUATTDRO 17:21 → EDINP 17:21 → 3E 22:25